=== PATIENT | male | born 1960 | race Caucasian/White ===

== ENCOUNTER 2017-05-11 11:48 | Inpatient (IN) | payer OTHER ==
--- NOTE | 2017-05-11 12:14 | Emergency Department Report ---
Chief Complaint: Chest Pain Stated Complaint: CHEST PRESSURE/SWOLLEN LEGS Time Seen by Provider: 05/11/17 12:09 - HPI History of Present Illness: PT c/o intermittent chest pain x a month. sob with exertion x 1 week - ROS Review of Systems: + cp + sob + ble edema - Exam Physical Exam: PT looks well, non toxic. ble edema noted MSE screening note: Focused history and physical exam performed. Due to findings the following was ordered: ekg, labs, xr ED Disposition for MSE Condition: Stable
[2017-05-11 12:32] LABS: Basophils % (Auto) 0.1 % (0.0-1.8); Eosinophils % (Auto) 2.7 % (0.0-4.3); Hematocrit 40.3 % (35.5-45.6); Hemoglobin 13.9 gm/dl (11.8-15.2); Mean Corpuscular HGB Conc 34 % (32-34); Mean Corpuscular Hemoglobin 31 pg (28-32); Mean Corpuscular Volume 89 fl (84-94); Platelet Count 227 K/mm3 (140-440); Red Blood Count 4.51 M/mm3 (3.65-5.03); Red Cell Distribution Width 13.4 % (13.2-15.2); White Blood Count 10.3 K/mm3 (4.5-11.0)
[2017-05-11 12:43] LABS: INR 1.02 (0.87-1.13)
[2017-05-11 12:44] LABS: Partial Thromboplastin Time 33.5 Sec. (24.2-36.6)
[2017-05-11] MEDS ORDERED: BABY ASPIRIN PO ONE (12:46)
[2017-05-11 12:51] LABS: Alanine Aminotransferase 28 units/L (7-56); Albumin 3.8 g/dL (3.9-5); Albumin/Globulin Ratio 0.9 %; Alkaline Phosphatase 85 units/L (35-129); Anion Gap 19 mmol/L; BUN/Creatinine Ratio 15.33; Blood Urea Nitrogen 23 mg/dL (9-20); Calcium 8.6 mg/dL (8.4-10.2); Carbon Dioxide 23 mmol/L (22-30); Chloride 104.2 mmol/L (98-107); Glucose 103 mg/dL (75-100); Potassium 4.5 mmol/L (3.6-5.0); Sodium 142 mmol/L (137-145); Total Protein 7.9 g/dL (6.3-8.2)
--- NOTE | 2017-05-11 12:55 | XRay Report ---
Bilateral mammogram: History: Chest pain. Findings: Borderline cardiomegaly. Trachea is midline. No consolidation, pneumothorax or pleural effusion. Impression: No acute cardiopulmonary findings.
--- NOTE | 2017-05-11 13:57 | Admit Criteria Form ---
Admission Criteria Documentation: CHEST PAIN Clinical Indications for Admission to Inpatient Care ([place]/check or initial the applicable condition/criteria) Admission is indicated for chest pain and ANY ONE of the following (1)(2)(3)(4)( 5)(6)(7): [ X]I. Angina with acute coronary syndrome (Also use Myocardial Infarction or Angina guideline) [ ]II. Hemodynamic instability [ ]III. Respiratory distress [ ]IV. Chest pain indicative of serious diagnosis other than coronary artery disease (e.g., aorticdissection) Extended stay beyond goal length of stay may be needed for(3)(4)(10)(45)(48) [ ]a) Unstable angina [ ]b) Continued suspicion of acute coronary syndrome with inability to complete needed cardiac evaluation (eg, patient clinically unable to undergo stress testing) [ ]c) Myocardial infarction [ ]d) Specific condition diagnosed after evaluation (eg, pulmonary embolism, aortic dissection)(49)(50)(51) The original [email or web address] content created by [email or web address] has been revised. The portions of the content which have been revised are identified through the use of italic text or in bold, and [email or web address] has neither reviewed nor approved the modified material. All other unmodified content is copyright [email or web address]. Please see references footnoted in the original [email or web address] edition 2017 Admission Criteria Met: Yes
--- NOTE | 2017-05-11 15:32 | Emergency Department Report ---
ED Chest Pain HPI - General Chief Complaint: Chest Pain Stated Complaint: CHEST PRESSURE/SWOLLEN LEGS Time Seen by Provider: 05/11/17 12:09 Source: patient Mode of arrival: Ambulatory Limitations: No Limitations - History of Present Illness Initial Comments: This is a 57-year-old male who presents to the emergency department complaint of bilateral lower extremity swelling and some chest pain that is intermittent. Both of these symptoms have been going on over the past few weeks but worsened over this past weekend. The chest pain is mostly a squeezing sensation with exertion. He denies any fever, nausea, vomiting or diaphoresis. He has a past medical history of arthritis, CHF, coronary artery disease with 8 stents, stage III chronic kidney disease. The patient's primary care physician is Dr. Bush and his photographic double is Dr. Lunsford and another one at the [facility]. He has not taken anything for his symptoms prior to presentation. No recent travel or sick contacts at home. Severity scale (0 -10): 3 - Related Data Home Medications Medication Instructions Recorded Confirmed Last Taken Allopurinol [Allopurinol] 30 mg PO DAILY 01/22/17 05/11/17 05/11/17 Amlodipine Besylate [Amlodipine 10 mg PO DAILY 01/22/17 05/11/17 05/11/17 Besylate] Aspirin [Aspirin EC] 81 mg PO DAILY 01/22/17 05/11/17 05/11/17 AtorvaSTATin [Lipitor] 80 mg PO DAILY 01/22/17 05/11/17 05/11/17 Citalopram Hydrobromide 30 mg PO DAILY 01/22/17 05/11/17 05/11/17 [Citalopram HBr] Clopidogrel Bisulfate [Plavix] 75 mg PO DAILY 01/22/17 05/11/17 05/11/17 ISOSORBIDE MONOnitrate [Imdur ER] 120 mg PO QDAY 01/22/17 05/11/17 05/11/17 Metoprolol Tartrate [Metoprolol 100 mg PO BID 01/22/17 05/11/17 05/11/17 Tartrate] Lisinopril [Zestril TAB] 40 mg PO QDAY 05/11/17 05/11/17 05/11/17 Simvastatin [Zocor TAB] 40 mg PO QHS 05/11/17 05/11/1717 Allergies Allergy/AdvReac Type Severity Reaction Status Date / Time tramadol Allergy Unknown Verified 05/11/17 12:44 Heart Score - HEART Score History: Moderately suspicious EKG: Non-specific Age: 45-65 Risk factors: > 3 risk factors or hx of atherosclerotic disease Troponin: < normal limit HEART Score: 5 - Critical Actions Critical Actions: 4-6 pts:12-16.6% risk of adverse cardiac event. Should be admitted ED Review of Systems ROS: Stated complaint: CHEST PRESSURE/SWOLLEN LEGS Other details as noted in HPI Comment: All other systems reviewed and negative Constitutional: denies: chills, fever Eyes: denies: eye pain, eye discharge, vision change ENT: denies: ear pain, throat pain Respiratory: denies: cough, wheezing Cardiovascular: chest pain, edema Gastrointestinal: denies: abdominal pain, nausea, diarrhea Genitourinary: denies: urgency, dysuria Musculoskeletal: denies: back pain, joint swelling, arthralgia Skin: denies: rash, lesions Neurological: denies: headache, weakness, paresthesias ED Past Medical Hx - Past Medical History Previous Medical History?: Yes Hx Hypertension: Yes Hx Congestive Heart Failure: Yes Hx Arthritis: Yes Additional medical history: aleep apnea - Surgical History Past Surgical History?: Yes Hx Coronary Stent: Yes Hx Open Heart Surgery: Yes - Social History Smoking Status: Never Smoker Substance Use Type: Prescribed - Medications Home Medications: Home Medications Medication Instructions Recorded Confirmed Last Taken Type Allopurinol [Allopurinol] 30 mg PO DAILY 01/22/17 05/11/17 05/11/17 History Amlodipine Besylate [Amlodipine 10 mg PO DAILY 01/22/17 05/11/17 05/11/17 History Besylate] Aspirin [Aspirin EC] 81 mg PO DAILY 01/22/17 05/11/17 05/11/17 History AtorvaSTATin [Lipitor] 80 mg PO DAILY 01/22/17 05/11/17 05/11/17 History Citalopram Hydrobromide 30 mg PO DAILY 01/22/17 05/11/17 05/11/17 History [Citalopram HBr] Clopidogrel Bisulfate [Plavix] 75 mg PO DAILY 01/22/17 05/11/17 05/11/17 History ISOSORBIDE MONOnitrate [Imdur ER] 120 mg PO QDAY 01/22/17 05/11/17 05/11/17 History Metoprolol Tartrate [Metoprolol 100 mg PO BID 01/22/17 05/11/17 05/11/17 History Tartrate] Lisinopril [Zestril TAB] 40 mg PO QDAY 05/11/17 05/11/17 05/11/17 History Simvastatin [Zocor TAB] 40 mg PO QHS 05/11/17 05/11/17 05/11/17 History ED Physical Exam - General Limitations: No Limitations - Other Other exam information: GENERAL: The patient is well-developed well-nourished. HENT: Normocephalic. Atraumatic. Patient has moist mucous membranes. EYES: Extraocular motions are intact. Pupils equal reactive to light bilaterally. NECK: Supple. Trachea is midline. CHEST/LUNGS: Slightly coarse breath sounds. No tachypnea or accessory muscle use. There is no respiratory distress noted. HEART/CARDIOVASCULAR: Regular. There is no tachycardia. There is no gallop rub or murmur. ABDOMEN: Abdomen is soft, nontender. Patient has normal bowel sounds. There is no abdominal distention. SKIN: There is 1+ pitting edema to the bilateral lower extremity. NEURO: The patient is awake, alert, and oriented. The patient is cooperative. The patient has no focal neurologic deficits. The patient has normal speech. MUSCULOSKELETAL: There is no tenderness or deformity. There is no limitation range of motion. There is no evidence of acute injury. ED Course Vital Signs 05/11/17 05/11/17 05/11/17 12:09 12:39 12:57 Temperature 98.7 F Pulse Rate 70 66 Respiratory 20 16 18 Rate Blood Pressure 116/82 Blood Pressure 109/67 [Left] O2 Sat by Pulse 97 96 Oximetry 05/11/17 05/11/17 13:27 15:19 Temperature Pulse Rate 65 60 Respiratory 18 18 Rate Blood Pressure Blood Pressure 107/68 112/71 [Left] O2 Sat by Pulse 97 96 Oximetry ED Medical Decision Making - Lab Data Result diagrams: 05/11/17 12:14 05/11/17 12:14 - EKG Data -: EKG Interpreted by [place] EKG shows normal: sinus rhythm, axis, intervals (prolonged GA interval indicating first-degree AV block), QRS complexes, ST-T waves (there is some T- wave inversion and mild ST depression to the lateral leads. No ST elevation) Rate: normal - EKG Data When compared to previous EKG there are: previous EKG unavailable - Radiology Data Radiology results: image reviewed interpreted by me: Chest x-ray does not show any acute process. There are no pleural effusions, obvious pneumonia and there is no pneumothorax. - Medical Decision Making 57-year-old male presents to the emergency department with some lower extremity swelling and exertional chest pain going on for the past few weeks but worsening since the past weekend. He has a significant history of 8 coronary stents. So far first 2 troponins have been negative. D-dimer was elevated so a VQ scan was done that did not show any signs of pulmonary embolism. He does not appear to be in any acute exacerbation of CHF as his BNP is only about 250 and chest x-ray does not show any pleural effusions. However with his worsening pains, his significant cardiac history, he'll be admitted to the hospital for further evaluation and treatment has been accepted for admission by the hospitalist, Dr. Garcias. - Differential Diagnosis GA, PE, CHF, Pneumonia Critical Care Time: No Critical care attestation.: If time is entered above; I have spent that time in minutes in the direct care of this critically ill patient, excluding procedure time. ED Disposition Clinical Impression: Exertional chest pain, Lower extremity edema, History of coronary artery disease Disposition: OP ADMIT IP TO THIS HOSP Is pt being admited?: Yes Condition: Stable Instructions: Chest Pain (ED) Referrals: SEBAS BUSH MD [Primary Care Provider] - 3-5 Days Time of Disposition: 16:03
--- NOTE | 2017-05-11 15:33 | Nuclear Medicine Report ---
Nuclear medicine ventilation/perfusion lung scan. History: Chest pain, elevated d-dimer. Findings: The ventilation study demonstrates a normal inhalation phase. On the equilibrium and washout phase, there is a persistent linear area of activity projected over the medial aspect of the left upper lung zone. There is no corresponding perfusion defect. The perfusion study demonstrates homogeneous activity throughout both lungs. Impression: Low probability of embolic disease. The above described ventilation abnormality may be artifactual.
[2017-05-11] MEDS ORDERED: LASIX IV ONE (15:38)
--- NOTE | 2017-05-11 18:13 | History and Physical Report ---
History of Present Illness Date of examination: 05/11/17 Date of admission: 05/11/17 15:56 Chief complaint: Chief complaint: [1] Swelling of both lower extremities. 3 Days. 2] Chest pain on exertion on day. History of present illness: History of present illness: 57-year-old -[place] male with extensive history of coronary artery disease coronary artery bypass graft 4 in 2012 hypertension gout dyslipidemia coronary artery disease presents to the ER for swelling of both the legs of 3-5 days' duration. Swelling is more in the right lower extremity. Patient had vein extraction from the right lower extremity for his coronary artery bypass graft in 2012. There is some pain in both the legs. Also chest pain on exertion for last 2-3 days. Also shortness of breath on exertion for last 2-3 days. Some orthopnea present. No paroxysmal nocturnal dyspnea. No diaphoresis. No palpitations. No fever no chills. No recent travel. No exacerbating or relieving factors. Only exacerbating factor is exertion. Past medical history: hypertension, coronary artery disease, gout, depression, dyslipidemia. Past surgical history: coronary artery bypass graft in . Also coronary stents 8. Family history: Hypertension. Social history: Never smoked. Used to drink alcohol in the past but not in the recent 4-5 years. His works in the emergency room here. Medications and Allergies Allergies Allergy/AdvReac Type Severity Reaction Status Date / Time tramadol Allergy Unknown Verified 05/11/17 12:44 Home Medications Medication Instructions Recorded Confirmed Last Taken Type Allopurinol [Allopurinol] 30 mg PO DAILY 01/22/17 05/11/17 05/11/17 History Amlodipine Besylate [Amlodipine 10 mg PO DAILY 01/22/17 05/11/17 05/11/17 History Besylate] Aspirin [Aspirin EC] 81 mg PO DAILY 01/22/17 05/11/17 05/11/17 History AtorvaSTATin [Lipitor] 80 mg PO DAILY 01/22/17 05/11/17 05/11/17 History Citalopram Hydrobromide 30 mg PO DAILY 01/22/17 05/11/17 05/11/17 History [Citalopram HBr] Clopidogrel Bisulfate [Plavix] 75 mg PO DAILY 01/22/17 05/11/17 05/11/17 History ISOSORBIDE MONOnitrate [Imdur ER] 120 mg PO QDAY 01/22/17 05/11/17 05/11/17 History Metoprolol Tartrate [Metoprolol 100 mg PO BID 01/22/17 05/11/17 05/11/17 History Tartrate] Lisinopril [Zestril TAB] 40 mg PO QDAY 05/11/17 05/11/17 05/11/17 History Simvastatin [Zocor TAB] 40 mg PO QHS 05/11/17 05/11/17 05/11/17 History Active Meds: Active Medications Heparin Sodium (Porcine) (Heparin) 5,000 unit SUB-Q Q8HR PARRIS Review of Systems All systems: negative Constitutional: weight gain (3 pound weight gain ) Ears, nose, mouth and throat: no hoarseness, no sore throat, no swelling in mouth, no swelling in throat Cardiovascular: chest pain, orthopnea, shortness of breath, dyspnea on exertion Respiratory: dyspnea on exertion, no cough, no cough with sputum, no excessive sputum, no hemoptysis, no shortness of breath Gastrointestinal: no abdominal pain, no nausea, no vomiting, no diarrhea, no constipation, no change in bowel habits, no hematemesis, no coffee ground emesis Genitourinary Male: no dysuria, no hematuria, no flank pain, no discharge, no urinary frequency, no urinary hesitancy, no nocturia, no incontinence, no erectile dysfunction, no genital pain Rectal: no pain Musculoskeletal: no neck stiffness, no neck pain, no shooting arm pain, no arm numbness/tingling, no low back pain, no shooting leg pain, no leg numbness/ tingling, no redness of joints Integumentary: no rash, no pruritis, no redness, no sores, no wounds, no jaundice, no boils, no blisters Neurological: no seizures, no syncope Psychiatric: no anxiety, no memory loss, no change in sleep habits, no sleep disturbances, no insomnia, no hypersomnia, no change in appetite, no change in libido, no suicidal ideation, no disorientation, no hallucinations Endocrine: no cold intolerance, no heat intolerance, no polyphagia, no excessive thirst, no polydipsia, no polyuria, no nocturia, no excessive sweating , no flushing, no weight change Hematologic/Lymphatic: no easy bruising, no easy bleeding Allergic/Immunologic: no urticaria, no allergic rhinitis, no wheezing Exam - Physical Exam Narrative exam: Lying comfortably and in no distress. - Constitutional Vitals: Temp Pulse Resp BP Pulse Ox 98.7 F 60 18 112/71 96 05/11/17 12:09 05/11/17 15:19 05/11/17 15:19 05/11/17 15:19 05/11/17 15:19 General appearance: Present: no acute distress, well-nourished - EENT Eyes: Present: PERRL ENT: hearing intact, clear oral mucosa - Neck Neck: Present: supple, normal ROM - Respiratory Respiratory effort: normal Respiratory: bilateral: CTA - Cardiovascular Heart rate: 80 Rhythm: regular Heart Sounds: Present: S1 & S2. Absent: rub, click - Extremities Extremities: no ischemia, pulses intact, pulses symmetrical, No edema, normal color, abnormal (swelling of both lower extremities from the knee down to the ankle. More swelling in right lower extremity. Pulses well felt especially dorsalis pedis) Extremity abnormal: edema (3+ pedal edema) Peripheral Pulses: within normal limits - Abdominal General gastrointestinal: Present: soft, non-tender, non-distended, normal bowel sounds Male genitourinary: Present: normal - Rectal Rectal Exam: deferred - Integumentary Integumentary: Present: clear, warm, dry - Musculoskeletal Musculoskeletal: gait normal, strength equal bilaterally - Psychiatric Psychiatric: appropriate mood/affect, intact judgment & insight - Neurologic Neurologic: CNII-XII intact, moves all extremities - Allied Health Allied health notes reviewed: nursing, case management Results - Labs CBC & Chem 7: 05/11/17 12:14 05/11/17 12:14 Labs: Laboratory Last Values WBC 10.3 K/mm3 (4.5-11.0) 05/11/17 12:14 RBC 4.51 M/mm3 (3.65-5.03) 05/11/17 12:14 Hgb 13.9 gm/dl (11.8-15.2) 05/11/17 12:14 Hct 40.3 % (35.5-45.6) 05/11/17 12:14 MCV 89 fl (84-94) 05/11/17 12:14 MCH 31 pg (28-32) 05/11/17 12:14 MCHC 34 % (32-34) 05/11/17 12:14 RDW 13.4 % (13.2-15.2) 05/11/17 12:14 Plt Count 227 K/mm3 (140-440) 05/11/17 12:14 Lymph % (Auto) 27.4 % (13.4-35.0) 05/11/17 12:14 [place] % (Auto) 8.2 % (0.0-7.3) H 05/11/17 12:14 Eos % (Auto) 2.7 % (0.0-4.3) 05/11/17 12:14 Baso % (Auto) 0.1 % (0.0-1.8) 05/11/17 12:14 Lymph # 2.8 K/mm3 (1.2-5.4) 05/11/17 12:14 [place] # 0.8 K/mm3 (0.0-0.8) 05/11/17 12:14 Eos # 0.3 K/mm3 (0.0-0.4) 05/11/17 12:14 Baso # 0.0 K/mm3 (0.0-0.1) 05/11/17 12:14 Seg Neutrophils % 61.6 % (40.0-70.0) 05/11/17 12:14 Seg Neutrophils # 6.3 K/mm3 (1.8-7.7) 05/11/17 12:14 PT 13.9 Sec. (12.2-14.9) 05/11/17 12:14 INR 1.02 (0.87-1.13) 05/11/17 12:14 APTT 33.5 Sec. (24.2-36.6) 05/11/17 12:14 D-Dimer 274.85 ng/mlDDU (0-234) H 05/11/17 12:14 Sodium 142 mmol/L (137-145) 05/11/17 12:14 Potassium 4.5 mmol/L (3.6-5.0) 05/11/17 12:14 Chloride 104.2 mmol/L (98-107) 05/11/17 12:14 Carbon Dioxide 23 mmol/L (22-30) 05/11/17 12:14 Anion Gap 19 mmol/L 05/11/17 12:14 BUN 23 mg/dL (9-20) H 05/11/17 12:14 Creatinine 1.5 mg/dL (0.8-1.5) 05/11/17 12:14 Estimated GFR 49 ml/min 05/11/17 12:14 BUN/Creatinine Ratio 15.33 % 05/11/17 12:14 Glucose 103 mg/dL (75-100) H 05/11/17 12:14 Calcium 8.6 mg/dL (8.4-10.2) 05/11/17 12:14 Total Bilirubin 0.40 mg/dL (0.1-1.2) 05/11/17 12:14 AST 16 units/L (5-40) 05/11/17 12:14 ALT 28 units/L (7-56) 05/11/17 12:14 Alkaline Phosphatase 85 units/L (35-129) 05/11/17 12:14 Troponin T < 0.010 ng/mL (0.00-0.029) 05/11/17 12:14 Total Protein 7.9 g/dL (6.3-8.2) 05/11/17 12:14 Albumin 3.8 g/dL (3.9-5) L 05/11/17 12:14 Albumin/Globulin Ratio 0.9 % 05/11/17 12:14 Short CBC 05/11/17 Range/Units 12:14 WBC 10.3 (4.5-11.0) K/mm3 Hgb 13.9 (11.8-15.2) gm/dl Hct 40.3 (35.5-45.6) % Plt Count 227 (140-440) K/mm3 BMP 05/11/17 12:14 Sodium 142 Potassium 4.5 Chloride 104.2 Carbon Dioxide 23 BUN 23 H Creatinine 1.5 Glucose 103 H Calcium 8.6 Cardiac Enzymes 05/11/17 Range/Units 12:14 Troponin T < 0.010 (0.00-0.029) ng/mL Liver Function 05/11/17 Range/Units 12:14 Total Bilirubin 0.40 (0.1-1.2) mg/dL AST 16 (5-40) units/L ALT 28 (7-56) units/L Alkaline Phosphatase 85 (35-129) units/L Albumin 3.8 L (3.9-5) g/dL - Imaging and Cardiology EKG: report reviewed (heart rate of 64 per minute. Sinus rhythm with first degree AV block. ST-T wave abnormalities in lateral leads consider lateral ischemia. Abnormal EKG. T-wave inversion in V4 V5 and V6.) Chest x-ray: report reviewed (no acute cardiopulmonary findings) Assessment and Plan Advance Directives: Yes (full code) VTE prophylaxis?: Chemical Plan of care discussed with patient/family: Yes - Patient Problems (1) Acute coronary syndrome Current Visit: Yes Status: Acute Plan to address problem: Patient had multiple stress tests and as recently as in November had a cardiac stent following the stress test in [facility]. We will defer to cardiology regarding stress test. Will get serial cardiac enzymes in the meantime. (2) Hypertension Current Visit: Yes Status: Chronic Qualifiers: Hypertension type: essential hypertension Qualified Code(s): I10 - Essential (primary) hypertension Plan to address problem: Continue amlodipine 10 mg once a day and metoprolol 100 mg twice a day. (3) Coronary artery disease Current Visit: Yes Status: Chronic Qualifiers: Coronary Disease-Associated Artery/Lesion type: [place] artery [place] vs. transplanted heart: N Associated angina: with unspecified angina Plan to address problem: Continue Imdur and Plavix 75 mg once daily in addition to aspirin 81 mg once daily. (4) Gout Current Visit: Yes Status: Inactive Qualifiers: Gout site: G Gout etiology: G Encounter type: E Chronicity: C Laterality: L Presence of tophus: without tophus Plan to address problem: Continue allopurinol 100 mg once daily for prevention (5) Dyslipidemia Current Visit: Yes Status: Chronic Plan to address problem: Continue atorvastatin 80 mg once a day. (6) Localized swelling of both lower legs Current Visit: Yes Status: Acute Plan to address problem: Probably sec to venous insufficiency. Venous ultrasound ordered for r/o DVT (7) DVT prophylaxis Current Visit: Yes Status: Acute Plan to address problem: Lovenox 40 mg subcutaneous initiated.
[2017-05-11] MEDS ORDERED: MILK OF MAGNESIA PO PRN (18:35)
[2017-05-11] MEDS ORDERED: ZOFRAN IV PRN (18:35)
[2017-05-11] MEDS ORDERED: PERCOCET 5/325 PO PRN (18:35)
[2017-05-11] MEDS ORDERED: DILAUDID IV PRN (18:35)
[2017-05-11] MEDS ORDERED: TYLENOL PO PRN (18:35)
[2017-05-11] MEDS ORDERED: DULCOLAX PR PRN (18:35)
[2017-05-11] MEDS ORDERED: ZYLOPRIM PO SCH (19:00)
[2017-05-11] MEDS ORDERED: NORVASC PO SCH (19:00)
[2017-05-11] MEDS ORDERED: LASIX ONE (19:38)
[2017-05-11 20:27] LABS: Creatine Kinase MB 2.5 ng/mL (0.0-4.0)
[2017-05-11 20:28] LABS: Creatine Kinase 133 units/L (55-170)
[2017-05-11] MEDS: HALFPRIN EC PO SCH (21:35)
[2017-05-11] MEDS: ZESTRIL PO SCH (21:35)
[2017-05-11] MEDS: PLAVIX PO SCH (21:35)
[2017-05-11] MEDS: LOPRESSOR PO SCH (21:36)
[2017-05-11] MEDS: PEPCID PO SCH (21:36)
[2017-05-11] MEDS: HEPARIN SUB-Q SCH (21:37)
[2017-05-11] MEDS: IMDUR PO SCH (21:37)
[2017-05-11] MEDS ORDERED: ZOCOR PO SCH (22:00)
[2017-05-12 02:32] LABS: Creatine Kinase MB 2.2 ng/mL (0.0-4.0)
[2017-05-12 02:33] LABS: Creatine Kinase 143 units/L (55-170)
[2017-05-12] MEDS: HEPARIN SUB-Q SCH ×3 (05:27→21:47)
[2017-05-12 07:15] LABS: Albumin 3.6 g/dL (3.9-5); BUN/Creatinine Ratio 14.11; Bilirubin,Total 0.4 mg/dL (0.1-1.2); Calcium 8.1 mg/dL (8.4-10.2); Chloride 101.1 mmol/L (98-107); Potassium 4.3 mmol/L (3.6-5.0); Total Protein 7.3 g/dL (6.3-8.2)
--- NOTE | 2017-05-12 10:51 | Consultation ---
History of Present Illness Consult date: 05/12/17 Requesting physician: TROY MARTINEZ Consult reason: chest pain History of present illness: The pt is a 57 YO male with a past medical history significant for CAD, s/p CABG x4 (11/2012) and multiple PCI (most recent 04/2016 VIJAY of the SVG-RCA), HTN, HLP, JANIS, CKD, obesity, PTSD and anxiety. He is followed in our office by Dr. Holloway. He presented with c/o RLE swelling and pain x 3 days SECRETARY and recurrent midsternal chest tightness with minimal exertion and/or anxiety x several weeks SECRETARY. He also reports ANN. He denies any palpitations, n/v, diaphoresis, dizziness or syncope. Admission ECG showed NAF; Estefany are negative for AMI x 3 sets; CXR with NAF; DDimer minimally elevated; V/Q scan with low probability for PE; BLE venous duplex studies pending. Of note, last LHC done 07/01/2016 showed EF 50%, severe triple-vessel disease protected by GARCIA to LAD graft, free radial graft to mid obtuse marginal branch , and patent saphenous vein graft sequentially to the PDA and LV branches and the distal part of this graft which was stented 04/2016 widely patent. Echo done 05/2016 showed trace MR, mild LVH, EF 50 - 55%. Past History Past Medical History: acute PR, CAD, hypertension, hyperlipidemia, other (JANIS; CKD) Past Surgical History: CABG Social history: , lives with family. denies: smoking, alcohol abuse, prescription drug abuse Medications and Allergies Allergies Allergy/AdvReac Type Severity Reaction Status Date / Time tramadol Allergy Unknown Verified 05/11/17 12:44 Home Medications Medication Instructions Recorded Confirmed Last Taken Type Allopurinol [Allopurinol] 30 mg PO DAILY 01/22/17 05/11/17 05/11/17 History Amlodipine Besylate [Amlodipine 10 mg PO DAILY 01/22/17 05/11/17 05/11/17 History Besylate] Aspirin [Aspirin EC] 81 mg PO DAILY 01/22/17 05/11/17 05/11/17 History AtorvaSTATin [Lipitor] 80 mg PO DAILY 01/22/17 05/11/17 05/11/17 History Citalopram Hydrobromide 30 mg PO DAILY 05/02/0305/11/17 05/11/17 History [Citalopram HBr] Clopidogrel Bisulfate [Plavix] 75 mg PO DAILY 01/22/17 05/11/17 05/11/17 History ISOSORBIDE MONOnitrate [Imdur ER] 120 mg PO QDAY 01/22/17 05/11/17 05/11/17 History Metoprolol Tartrate [Metoprolol 100 mg PO BID 01/22/17 05/11/17 05/11/17 History Tartrate] Lisinopril [Zestril TAB] 40 mg PO QDAY 05/11/17 05/11/17 05/11/17 History Simvastatin [Zocor TAB] 40 mg PO QHS 05/11/17 05/11/17 05/11/17 History Active Meds: Active Medications Acetaminophen (Tylenol) 650 mg PO Q4H PRN PRN Reason: Pain MILD(1-3)/Fever >100.5/MISHRA Allopurinol (Zyloprim) 100 mg PO DAILY [facility] Amlodipine Besylate (Norvasc) 10 mg PO DAILY [facility] Aspirin (Halfprin Ec) 81 mg PO DAILY [facility] Last Admin: 05/11/17 21:35 Dose: 81 mg Atorvastatin Calcium (Lipitor) 80 mg PO QHS [facility] Last Admin: 05/11/17 21:37 Dose: 80 mg Bisacodyl (Dulcolax) 10 mg [place] QDAY PRN PRN Reason: Constipation unrelieved by MOM Citalopram Hydrobromide (Celexa) 30 mg PO DAILY [facility] Clopidogrel Bisulfate (Plavix) 75 mg PO DAILY [facility] Last Admin: 05/11/17 21:35 Dose: 75 mg Famotidine (Pepcid) 20 mg PO BID [facility] Last Admin: 05/11/17 21:36 Dose: 20 mg Heparin Sodium (Porcine) (Heparin) 5,000 unit SUB-Q Q8HR [facility] Last Admin: 05/12/17 05:27 Dose: 5,000 unit Hydromorphone HCl (Dilaudid) 0.5 mg IV Q3H PRN PRN Reason: Pain , Severe (7-10) Isosorbide Mononitrate (Imdur) 120 mg PO QDAY [facility] Last Admin: 05/11/17 21:37 Dose: 120 mg Lisinopril (Zestril) 40 mg PO QDAY [facility] Last Admin: 05/11/17 21:35 Dose: 40 mg Magnesium Hydroxide (Milk Of Magnesia) 30 ml PO Q4H PRN PRN Reason: Constipation Metoprolol Tartrate (Lopressor) 100 mg PO BID [facility] Last Admin: 05/11/17 21:36 Dose: 100 mg Ondansetron HCl (Zofran) 4 mg IV Q8H PRN PRN Reason: N/V unrelieved by Reglan Oxycodone/Acetaminophen (Percocet 5/325) 1 tab PO Q6H PRN PRN Reason: Pain, Moderate (4-6) Review of Systems Constitutional: no weight loss, no weight gain, no fever, no chills, no sweats Ears, nose, mouth and throat: no ear pain, no nose pain, no sinus pressure, no sinus pain Cardiovascular: chest pain, dyspnea on exertion, leg edema (RLE), decreased exercise tolerance, no orthopnea, no palpitations, no rapid/irregular heart beat , no edema, no syncope, no lightheadedness, no shortness of breath, no paroxysmal nocturnal dyspnea Respiratory: dyspnea on exertion, no cough, no shortness of breath, no congestion, no wheezing, no pain on inspiration Gastrointestinal: no abdominal pain, no nausea, no vomiting, no diarrhea, no constipation, no change in bowel habits Genitourinary Male: no dysuria, no hematuria, no flank pain, no discharge, no urinary frequency, no urinary hesitancy Musculoskeletal: no neck stiffness, no neck pain, no shooting arm pain, no arm numbness/tingling, no low back pain, no shooting leg pain, no leg numbness/ tingling, no redness of joints Integumentary: no rash, no pruritis, no redness, no sores, no wounds Neurological: no head injury, no paralysis, no weakness, no parathesias, no numbness, no tingling, no seizures, no syncope Psychiatric: anxiety Endocrine: no cold intolerance, no heat intolerance Hematologic/Lymphatic: no easy bruising, no easy bleeding, no lymphadenopathy Allergic/Immunologic: no urticaria, no wheezing, no persistent infections Physical Examination Vital Signs Temp Pulse Resp BP Pulse Ox 98.7 F 70 20 116/82 97 05/11/17 12:09 05/11/17 12:09 05/11/17 12:09 05/11/17 12:09 05/11/17 12:09 General appearance: no acute distress HEENT: Positive: PERRL, Normocephaly, Mucus Membranes Moist Neck: Positive: neck supple, trachea midline Cardiac: Positive: Reg Rate and Rhythm, S1/S2 Lungs: Positive: Normal Exam, clear to auscultation, Normal Breath Sounds Neuro: Positive: Grossly Intact, Cranial Nerve 2-12 Intact Abdomen: Positive: Unremarkable, Soft, Active Bowel Sounds. Negative: Tender Skin: Positive: Clear. Negative: Rash, Wound Musculoskeletal: No Fluid Collection, No Pain, Normal Range of Motion Extremities: Absent: edema Results 05/11/17 12:14 05/12/17 05:48 Cardiac Enzymes 05/11/17 05/12/17 05/12/17 Range/Units 19:10 01:02 05:48 AST 16 (5-40) units/L CK-MB (CK-2) 2.5 2.2 (0.0-4.0) ng/mL Comprehensive Metabolic Panel 05/12/17 Range/Units 05:48 Sodium 139 (137-145) mmol/L Potassium 4.3 (3.6-5.0) mmol/L Chloride 101.1 (98-107) mmol/L Carbon Dioxide 25 (22-30) mmol/L BUN 24 H (9-20) mg/dL Creatinine 1.7 H (0.8-1.5) mg/dL Glucose 86 (75-100) mg/dL Calcium 8.1 L (8.4-10.2) mg/dL AST 16 (5-40) units/L ALT 26 (7-56) units/L Alkaline Phosphatase 77 (35-129) units/L Total Protein 7.3 (6.3-8.2) g/dL Albumin 3.6 L (3.9-5) g/dL - Imaging and Cardiology Echo: report reviewed (05/2016: trace MR, mild LVH, EF 50 - 55%. ) Cardiac cath: report reviewed (07/01/2016: EF 50%, severe triple-vessel disease protected by GARCIA to LAD graft, free radial graft to mid obtuse marginal branch , and patent saphenous vein graft sequentially to the PDA and LV branches and the distal part of this graft which was stented 04/2016 widely patent) EKG: image reviewed EKG interpretations - Telemetry EKG Rhythm: 1st Degree HB AV and intraventricular conduction: 1 AV block Chamber hypertrophy or enlargement: left ventricular hypertro Myocardial infarction: inferior PR (old age inde Assessment and Plan Assessment: Chest pain - with somewhat typical features; recurrent; ECG with NAF; Estefany negative for AMI x 3 sets. CAD, s/p CABG and PCI - last LHC in 06/2016 showed patent grafts and stent. HTN HLP JANIS Obesity H/o PTSD / anxiety Plan: Plan for lexiscan MPI stress test in AM. NPO after MN. No indication for repeat echo at time given recent echo 05/2016. Cont home ASA 81, plavix, lopressor, imdur, lisinopril, norvasc. Pt on pravastatin at home and did not tolerate Lipitor in the past d/t muscle aches. Hold statin at this time and will resume home statin at discharge. Assessment and plan reviewed with pt at bedside. The patient has been seen in conjunction with Dr. Bose who agrees with the assessment and plan of care.
[2017-05-12] MEDS: PEPCID PO SCH ×2 (10:57→21:46)
[2017-05-12] MEDS: HALFPRIN EC PO SCH (10:57)
[2017-05-12] MEDS: NORVASC PO SCH (10:57)
[2017-05-12] MEDS: ZESTRIL PO SCH (10:58)
[2017-05-12] MEDS: celeXA PO SCH (10:58)
[2017-05-12] MEDS: IMDUR PO SCH (10:58)
[2017-05-12] MEDS: ZYLOPRIM PO SCH (10:59)
[2017-05-12] MEDS: LOPRESSOR PO SCH ×2 (10:59→21:46)
[2017-05-12] MEDS: PLAVIX PO SCH (11:02)
--- NOTE | 2017-05-12 11:55 | Consultation ---
History of Present Illness - Reason for Consult Consult date: 05/12/17 chronic renal failure, proteinuria - History of Present Illness The patient is a 57 YO AAM with medical history significant for Morbid Obesity, Hypertension, HLP, CAD, s/p CABG x4 (11/2012), multiple PCI (most recent 04/2016 VIJAY of the SVG-RCA), JANIS, CKD stage 3, Proteinuria, PTSD and anxiety who presented with 3 days h/o RLE swelling and pain and several days h/o chest tightness. CP is midsternal, intermittent and not radiating. He also reports ANN. He denies any palpitations, N, V, D, abd pain, diaphoresis, dizziness, dysuria, hematuria or syncope. Patient is known to have CKD stage 3 with baseline creatinine around 1.8 and was last seen by PA [facility]over about 2 years ago. He has gained atleast 50 lbs of weight over the past 2 years. Past History Past Medical History: acute AR, CAD, hypertension, hyperlipidemia, other (JANIS; CKD) Past Surgical History: CABG Social history: , lives with family. denies: smoking, alcohol abuse, prescription drug abuse Medications and Allergies Allergies Allergy/AdvReac Type Severity Reaction Status Date / Time tramadol Allergy Unknown Verified 05/11/17 12:44 Home Medications Medication Instructions Recorded Confirmed Last Taken Type Allopurinol [Allopurinol] 30 mg PO DAILY 01/22/17 05/11/17 05/11/17 History Amlodipine Besylate [Amlodipine 10 mg PO DAILY 01/22/17 05/11/17 05/11/17 History Besylate] Aspirin [Aspirin EC] 81 mg PO DAILY 01/22/17 05/11/17 05/11/17 History AtorvaSTATin [Lipitor] 80 mg PO DAILY 01/22/17 05/11/17 05/11/17 History Citalopram Hydrobromide 30 mg PO DAILY 01/22/17 05/11/17 05/11/17 History [Citalopram HBr] Clopidogrel Bisulfate [Plavix] 75 mg PO DAILY 01/22/17 05/11/17 05/11/17 History ISOSORBIDE MONOnitrate [Imdur ER] 120 mg PO QDAY 01/22/17 05/11/17 05/11/17 History Metoprolol Tartrate [Metoprolol 100 mg PO BID 01/22/17 05/11/17 05/11/17 History Tartrate] Lisinopril [Zestril TAB] 40 mg PO QDAY 05/11/17 05/11/17 05/11/17 History Simvastatin [Zocor TAB] 40 mg PO QHS 05/11/17 05/11/17 05/11/17 History Active Meds: Active Medications Acetaminophen (Tylenol) 650 mg PO Q4H PRN PRN Reason: Pain MILD(1-3)/Fever >100.5/MISHRA Allopurinol (Zyloprim) 100 mg PO DAILY [facility] Last Admin: 05/12/17 10:59 Dose: 100 mg Amlodipine Besylate (Norvasc) 10 mg PO DAILY [facility] Last Admin: 05/12/17 10:57 Dose: 10 mg Aspirin (Halfprin Ec) 81 mg PO DAILY [facility] Last Admin: 05/12/17 10:57 Dose: 81 mg Bisacodyl (Dulcolax) 10 mg [place] QDAY PRN PRN Reason: Constipation unrelieved by MOM Citalopram Hydrobromide (Celexa) 30 mg PO DAILY [facility] Last Admin: 05/12/17 10:58 Dose: 30 mg Clopidogrel Bisulfate (Plavix) 75 mg PO DAILY [facility] Last Admin: 05/12/17 11:02 Dose: 75 mg Famotidine (Pepcid) 20 mg PO BID [facility] Last Admin: 05/12/17 10:57 Dose: 20 mg Heparin Sodium (Porcine) (Heparin) 5,000 unit SUB-Q Q8HR [facility] Last Admin: 05/12/17 05:27 Dose: 5,000 unit Hydromorphone HCl (Dilaudid) 0.5 mg IV Q3H PRN PRN Reason: Pain , Severe (7-10) Isosorbide Mononitrate (Imdur) 120 mg PO QDAY [facility] Last Admin: 05/12/17 10:58 Dose: 120 mg Lisinopril (Zestril) 40 mg PO QDAY [facility] Last Admin: 05/12/17 10:58 Dose: 40 mg Magnesium Hydroxide (Milk Of Magnesia) 30 ml PO Q4H PRN PRN Reason: Constipation Metoprolol Tartrate (Lopressor) 100 mg PO BID [facility] Last Admin: 05/12/17 10:59 Dose: 100 mg Ondansetron HCl (Zofran) 4 mg IV Q8H PRN PRN Reason: N/V unrelieved by Reglan Oxycodone/Acetaminophen (Percocet 5/325) 1 tab PO Q6H PRN PRN Reason: Pain, Moderate (4-6) Review of Systems Constitutional: weight gain, no weight loss, no fever, no chills, no anorexia, no weakness, no poor appetite Ears, nose, mouth and throat: no sinus pain, no epistaxis Cardiovascular: orthopnea, edema, shortness of breath, dyspnea on exertion, high blood pressure, leg edema, decreased exercise tolerance, no chest pain, no palpitations, no rapid/irregular heart beat, no syncope, no lightheadedness Respiratory: shortness of breath, dyspnea on exertion, sleep apnea, no cough, no cough with sputum, no hemoptysis, no home oxygen Gastrointestinal: no abdominal pain, no nausea, no vomiting, no diarrhea, no hematemesis, no melena Genitourinary Male: no dysuria, no hematuria Rectal: no bleeding Musculoskeletal: no redness of joints Integumentary: no rash, no sores, no jaundice Neurological: no syncope, no change in mentation, no confusion, no gait dysfunction Psychiatric: no disorientation Endocrine: weight change Hematologic/Lymphatic: no easy bleeding Exam - Vital Signs Vital signs: Vital Signs Temp Pulse Resp BP Pulse Ox 98.7 F 70 20 116/82 97 05/11/17 12:09 05/11/17 12:09 05/11/17 12:09 05/11/17 12:09 05/11/17 12:09 - General Appearance General appearance: well-developed, well-nourished, appears stated age, obese, other (no distress) EENT: ATNC, PERRL, mucous membranes moist, hearing intact, vision intact Neck: Present: neck supple, trachea midline Respiratory: Clear to Ascultation Heart: regular, S1S2, no murmurs Gastrointestinal: Present: normoactive bowel sounds, obese. Absent: tenderness , distended Integumentary: no rash Neurologic: no focal deficit, no asterixis, alert and oriented x3, CN 3-12 intact Musculoskeletal: Present: other (no edema) Psychiatric: mood/affect appropriate, cooperative Results - Lab Results 05/11/17 12:14 05/12/17 05:48 Most recent lab results Calcium 8.1 mg/dL (8.4-10.2) L 05/12/17 05:48 - Image Kidney/bladder ultrasound: pending Assessment and Plan - Patient Problems (1) Renal insufficiency Current Visit: Yes Status: Chronic Plan to address problem: CKD stage 3 likely secondary to hypertensive nephropathy. Renal function appears to be at his baseline. Discussed in detail about healthy eating habits, exercise and weight loss. (2) Proteinuria Current Visit: Yes Status: Chronic Qualifiers: Proteinuria type: P Isolated proteinuria type: I Trimester: T Plan to address problem: Patient is on Lisinopril. Likely secondary to Hypertensive Nephropathy. Urine studies ordered. (3) Exertional chest pain Current Visit: Yes Status: Acute Plan to address problem: Followed by Window C[facility].
--- NOTE | 2017-05-12 14:12 | Ultrasound Report ---
ULTRASOUND RENAL BILATERAL HISTORY: Acute renal failure. TECHNIQUE: transabdominal ultrasound with color Doppler interrogation. FINDINGS: The right kidney measures 10.6 x 4.3 x 5.5cm. Right renal cortex: 1.3cm. The left kidney measures 11.3 x 5.0 x 5.3cm. Left renal cortex: 1.2cm. Scans of the kidneys show normal renal contours. There is normal central calyceal clustering and good preservation of the cortical thickness. There is no evidence of mass or hydronephrosis. The views of the bladder and the region of the ureters appear normal. IMPRESSION: Unremarkable renal ultrasound. No significant change since 11/25/12.
--- NOTE | 2017-05-12 14:55 | Progress Note ---
Assessment and Plan Chest pain -with somewhat typical features; recurrent; ECG with NAF; Estefany negative for AMI x 3 sets. - stress test tomorrow, cardiology following CAD with history of KS - s/p CABG and PCI - last [facility] in 06/2016 showed patent grafts and stent. - Echo done 05/2016 showed trace MR, mild LVH, EF 50 - 55% - cont home meds, asp, plavix, BB, ACEI, imdur - no statin as he had side effect before CKD stage 3 - cr 1.7 today, Renal US unremarkable HTN - cont home meds ( BB, ACEI, imdur) HLD, - had side effect from lipitor, cont to hold JANIS - Supplimental O2, CPAp at bed time Obesity, counseled for wt reduction H/o PTSD / anxiety - no acute issue - cont celexa Brief history: The pt is a 57 YO male with a past medical history significant for CAD, s/p CABG x4 (11/2012) and multiple PCI (most recent 04/2016 VIJAY of the SVG-RCA), HTN, HLP, JANIS, CKD, obesity , PTSD and anxiety followed by Dr. Holloway presented with c/o RLE swelling and pain x 3 days [facility] and recurrent midsternal chest tightness with minimal exertion and/or anxiety x several weeks [facility]. Admission ECG showed NAF; Estefany are negative for AMI x 3 sets; DDimer minimally elevated; BLE venous duplex studies pending. Chest x-ray, no acute infiltrate Pulmonary VQ scan, low probability for PE Renal ultrasound, unremarkable Subjective Date of service: 05/12/17 Interval history: Patient seen and examined. Medical records and medication list reviewed. No acute event overnight noted by the RN. Patient cont to chest pain, denies difficulty breathing. Patient is tolerating diet. Discussed plan of care at bedside with patient. Objective - Exam Narrative Exam: GENERAL: well-developed and well-nourished AAM lying on bed appeared to be in no discomfort. HEENT: Normocephalic. Atraumatic. No conjunctival congestion or icterus. Patient has moist mucous membranes. NECK: Supple. Trachea midline. CHEST/LUNGS: Clear to auscultated bilaterally, breathing nonlabored. No wheezes crackles or rhonchi. HEART/CARDIOVASCULAR: Regular in rate and rhythm. S1 and S2 positive. ABDOMEN: Abdomen is soft, nontender. Patient has normal bowel sounds. SKIN: There is no rash. Warm and dry. NEURO: No focal motor deficit. Follows command. MUSCULOSKELETAL: No joint effusion or tenderness. EXTRIMITY: No edema, no cyanosis or clubbing. PSYCH: Cooperative. - Constitutional Vitals: Vital Signs - 12hr 05/12/17 05/12/17 05/12/17 05:44 08:00 08:34 Temperature 98.8 F 97.4 F L Pulse Rate 56 L 71 Respiratory 18 18 Rate Blood Pressure 101/56 119/75 O2 Sat by Pulse 98 99 98 Oximetry 05/12/17 05/12/17 05/12/17 10:57 10:58 10:59 Temperature Pulse Rate 78 78 78 Respiratory Rate Blood Pressure 119/75 119/75 119/75 O2 Sat by Pulse Oximetry 05/12/17 05/12/17 11:45 12:00 Temperature 98.4 F Pulse Rate 56 L 72 Respiratory 18 Rate Blood Pressure 126/79 O2 Sat by Pulse 97 Oximetry - Labs CBC & Chem 7: 05/11/17 12:14 05/13/17 06:36 Labs: Abnormal lab results 05/12/17 Range/Units 05:48 BUN 24 H (9-20) mg/dL Creatinine 1.7 H (0.8-1.5) mg/dL Calcium 8.1 L (8.4-10.2) mg/dL Albumin 3.6 L (3.9-5) g/dL
[2017-05-12 19:23] LABS: Bilirubin,Urine NEG (Negative); Blood,Urine NEG (Negative); Ketones,Urine NEG (Negative); Leukocyte Esterase,Urine NEG (Negative); Mucus,Urine FEW /HPF; Nitrite,Urine NEG (Negative); RBC,Urine < 1.0 /HPF (0.0-6.0); Urobilinogen,Urine < 2.0 mg/dL (<2.0)
[2017-05-13] MEDS: HEPARIN SUB-Q SCH ×2 (05:29→14:02)
[2017-05-13 07:21] LABS: BUN/Creatinine Ratio 14.11; Calcium 8.1 mg/dL (8.4-10.2); Chloride 105.4 mmol/L (98-107); Potassium 4.3 mmol/L (3.6-5.0)
[2017-05-13] MEDS ORDERED: LEXISCAN IV ONE ×2 (09:08→09:09)
--- NOTE | 2017-05-13 09:57 | Progress Note ---
Assessment and Plan Assessment: Chest pain - currently resolved; with somewhat typical features; ECG with NAF; Estefany negative for AMI x 3 sets. CAD, s/p CABG and PCI - last C in 06/2016 showed patent grafts and stent. HTN HLP JANIS Obesity H/o PTSD / anxiety Plan: Proceed with lexiscan MPI stress test today. Await findings. No indication for repeat echo at time given recent echo 05/2016. Cont home ASA 81, plavix, lopressor, imdur, lisinopril, norvasc. Pt on pravastatin at home and did not tolerate Lipitor in the past d/t muscle aches. Hold statin at this time and will resume home statin at discharge. Assessment and plan reviewed with pt at bedside. The patient has been seen in conjunction with Dr. Bose who agrees with the assessment and plan of care. Subjective Date of service: 05/13/17 Principal diagnosis: chest pain Interval history: pt seen in stress lab, NAD. No chest pain overnight. VSS. Objective Last Vital Signs Temp 99.0 F 05/13/17 08:15 Pulse 79 05/13/17 09:44 Resp 18 05/13/17 08:15 BP 118/73 05/13/17 09:44 Pulse Ox 98 05/13/17 08:15 - Physical Examination General: Appears Well, No Apparent Distress HEENT: Positive: PERRL, Normocephaly, Mucus Membranes Moist Neck: Positive: neck supple, trachea midline Cardiac: Positive: Reg Rate and Rhythm, S1/S2 Lungs: Positive: clear to auscultation Neuro: Positive: Grossly Intact, Cranial Nerve 2-12 Intact Abdomen: Positive: Unremarkable, Soft, Active Bowel Sounds. Negative: Tender Skin: Positive: Clear. Negative: Rash, Wound Musculoskeletal: No Fluid Collection, No Pain, Normal Range of Motion Extremities: Absent: edema - Labs and Meds Comprehensive Metabolic Panel 05/13/17 Range/Units 06:36 Sodium 142 (137-145) mmol/L Potassium 4.3 (3.6-5.0) mmol/L Chloride 105.4 (98-107) mmol/L Carbon Dioxide 23 (22-30) mmol/L BUN 24 H (9-20) mg/dL Creatinine 1.7 H (0.8-1.5) mg/dL Glucose 83 (75-100) mg/dL Calcium 8.1 L (8.4-10.2) mg/dL - Imaging and Cardiology EKG: image reviewed Echo: report reviewed (05/2016: trace MR, mild LVH, EF 50 - 55%. ) Cardiac cath: report reviewed (07/01/2016: EF 50%, severe triple-vessel disease protected by GARCIA to LAD graft, free radial graft to mid obtuse marginal branch , and patent saphenous vein graft sequentially to the PDA and LV branches and the distal part of this graft which was stented 04/2016 widely patent) - Telemetry EKG Rhythm: Sinus Rhythm AV and intraventricular conduction: 1 AV block Chamber hypertrophy or enlargement: left ventricular hypertro Myocardial infarction: inferior ME (old age inde
--- NOTE | 2017-05-13 10:09 | Progress Note ---
Assessment and Plan - Patient Problems (1) Renal insufficiency Status: Chronic Plan to address problem: CKD stage 3 likely secondary to hypertensive nephropathy. Renal function is stable. (2) Proteinuria Status: Chronic Qualifiers: Proteinuria type: P Isolated proteinuria type: I Trimester: T Plan to address problem: Patient is on Lisinopril. (3) Exertional chest pain Status: Acute Plan to address problem: Followed by Prototype [facility]. Subjective Date of service: 05/13/17 Principal diagnosis: chest pain Interval history: Patient is doing ok. Objective - Vital Signs Vital signs: Vital Signs - 12hr 05/12/17 05/13/17 05/13/17 23:15 00:00 04:00 Temperature 98.3 F 98.4 F Pulse Rate 76 65 66 Respiratory 18 18 Rate Blood Pressure 130/71 136/80 O2 Sat by Pulse 97 97 100 Oximetry 05/13/17 05/13/17 05/13/17 08:15 09:31 09:40 Temperature 99.0 F Pulse Rate 69 72 80 Respiratory 18 Rate Blood Pressure 123/74 121/77 123/95 O2 Sat by Pulse 98 Oximetry 05/13/17 05/13/17 05/13/17 09:41 09:42 09:43 Temperature Pulse Rate 88 81 85 Respiratory Rate Blood Pressure 123/76 108/68 113/69 O2 Sat by Pulse Oximetry 05/13/17 09:44 Temperature Pulse Rate 79 Respiratory Rate Blood Pressure 118/73 O2 Sat by Pulse Oximetry - General Appearance General appearance: well-developed, well-nourished, appears stated age, obese, other (no distress) EENT: ATNC, PERRL, mucous membranes moist, hearing intact, vision intact Neck: supple Respiratory: Present: Clear to Ascultation Cardiology: regular, S1S2, no murmurs Gastrointestinal: normoactive bowel sounds, no tenderness, obese Integumentary: no rash Neurologic: no focal deficit, no asterixis, alert and oriented x3, reflexes 2+ and symmetric Musculoskeletal: other (no edema) Psychiatric: mood/affect appropriate, cooperative - Lab 05/11/17 12:14 05/13/17 06:36 Most recent lab results Calcium 8.1 mg/dL (8.4-10.2) L 05/13/17 06:36 Urine Creatinine 120.8 mg/dL (0.1-20.0) H 05/12/17 18:46 Urine Sodium 81 mEq/L 05/12/17 18:46 Urine Total Protein 36 mg/dL (5-11.8) H 05/12/17 18:46
--- NOTE | 2017-05-13 10:33 | Event Note ---
Date: 05/13/17 Lexiscan MPI stress test this AM negative for ischemia. Pt reports resolution of chest pain. Currently stable cardiac status. Pt may discharge home from cardiology standpoint. Follow up in our [place] office with Dr. Holloway on 05/20/2017 @ 10:30AM. Kerline MARTIN NP / DR. ARCHER
[2017-05-13] MEDS: IMDUR PO SCH (10:42)
[2017-05-13] MEDS: PEPCID PO SCH (10:43)
[2017-05-13] MEDS: HALFPRIN EC PO SCH (10:43)
[2017-05-13] MEDS: celeXA PO SCH (10:43)
[2017-05-13] MEDS: PLAVIX PO SCH (10:43)
[2017-05-13] MEDS: ZESTRIL PO SCH (10:44)
[2017-05-13] MEDS: ZYLOPRIM PO SCH (10:44)
[2017-05-13] MEDS: LOPRESSOR PO SCH (10:44)
[2017-05-13] MEDS: NORVASC PO SCH (10:44)
--- NOTE | 2017-05-13 11:34 | Discharge Summary ---
Providers - Providers Date of Admission: 05/11/17 15:56 Date of discharge: 05/13/17 Attending physician: JOHANNA JAY 05/11/17 18:35 Consult to Physician [CONS] Routine Consulting Provider: JOHNNY BAEZ Reason For Exam: Chf/chest pain Place consult to:: [facility] Notified:: DARCY Was contact made?: Yes 05/11/17 18:53 Consult to Physician [CONS] Routine Consulting Provider: SONIA TOMPKINS Reason For Exam: Renal insufficiency Place consult to:: [place] Notified:: office Phone number called:: [phone] Was contact made?: Yes If yes, spoke with:: ana Time called:: 09:21 Primary care physician: SEBAS BUSH Hospitalization Condition: Stable Pertinent studies: Chest x-ray, no acute infiltrate Pulmonary VQ scan, low probability for PE Renal ultrasound, unremarkable Stress test normal Lower extremity Doppler negative for any acute DVT Hospital course: The pt is a 57 YO male with a past medical history significant for CAD, s/p CABG x4 (11/2012) and multiple PCI (most recent 04/2016 VIJAY of the SVG-RCA), HTN, HLP, JANIS, CKD, obesity , PTSD and anxiety followed by Dr. Baez presented with c/o RLE swelling and pain x 3 days [employer] and recurrent midsternal chest tightness with minimal exertion and/or anxiety x several weeks [employer]. Admission ECG showed NAF; Estefany are negative for AMI x 3 sets; DDimer minimally elevated; BLE venous duplex studies were negative. Discahrge diagnosis and management: Chest pain, likely from GERD -with somewhat typical features; recurrent; ECG with NAF; Estefany negative for AMI x 3 sets. - Lexiscan MPI stress test this AM negative for ischemia. Pt reports resolution of chest pain. - Currently stable cardiac status. Pt was cleared for discharge by cardiology - Follow up at [facility] with Dr. Baez on 05/20/2017 @ 10:30AM. CAD with history of IA - s/p CABG and PCI - last [facility] in 06/2016 showed patent grafts and stent. - Echo done 05/2016 showed trace MR, mild LVH, EF 50 - 55% - cont home meds, asp, plavix, BB, ACEI, imdur - no statin as he had side effect before, could be reassessed by revenue cycle administrator outpt CKD stage 3 - Cr was 1.7 today on discharge, Renal US unremarkable - Need further outpatient renal function monitoring HTN - cont home meds ( BB, ACEI, imdur) HLD, - had side effect from lipitor, cont to hold JANIS - assess for CPAp outpt Obesity, counseled for wt reduction H/o PTSD / anxiety - no acute issue - cont celexa Disposition: DC- TO HOME OR SELFCARE Time spent for discharge: 32 minutes Core Measure Documentation - Palliative Care Palliative Care/ Comfort Measures: Not Applicable - Core Measures Any of the following diagnoses?: none Exam - Physical Exam Narrative exam: GENERAL: well-developed and well-nourished AAM lying on bed appeared to be in no discomfort. HEENT: Normocephalic. Atraumatic. No conjunctival congestion or icterus. Patient has moist mucous membranes. NECK: Supple. Trachea midline. CHEST/LUNGS: Clear to auscultated bilaterally, breathing nonlabored. No wheezes crackles or rhonchi. HEART/CARDIOVASCULAR: Regular in rate and rhythm. S1 and S2 positive. ABDOMEN: Abdomen is soft, nontender. Patient has normal bowel sounds. SKIN: There is no rash. Warm and dry. NEURO: No focal motor deficit. Follows command. MUSCULOSKELETAL: No joint effusion or tenderness. EXTRIMITY: No edema, no cyanosis or clubbing. PSYCH: Cooperative. - Constitutional Vitals: Temp Pulse Resp BP Pulse Ox 99.0 F 79 18 118/73 98 05/13/17 08:15 05/13/17 10:44 05/13/17 08:15 05/13/17 10:44 05/13/17 10:18 Plan Activity: advance as tolerated Weight Bearing Status: Weight Bear as Tolerated Diet: low fat, low salt Additional Instructions: Follow up at [facility] office with Dr. Baez on 05/20/2017 @ 10:30AM. Follow up with: SEBAS BUSH MD [Primary Care Provider] - 3-5 Days Prescriptions: Pantoprazole [Protonix] 40 mg PO QDAY #30 tablet
[2017-05-13 13:51] VITALS: BP 116/69
--- NOTE | 2017-05-14 00:54 | Treadmill Report ---
NUCLEAR STUDY REASON FOR STUDY: Chest pain. READING PHYSICIAN: Dipesh Coombs MD IMAGING PROTOCOL: Single isotope used. The patient received 10 mCi of Technetium 99m Tetrofosmin for resting image and 28 mCi of Technetium 99m Tetrofosmin for stress imaging. The imaging for the whole procedure was completed 30-90 minutes following the initial injection of Technetium 99m tetrofosmin. The SPECT imaging in the 180 degree arc was performed in the right anterior oblique projection. Computerized reconstruction of the images was performed for analysis. IMAGING RESULTS: Normal cavity size from stress to rest. Normal distribution of radionuclide in the anterior, inferior, septal, and apical regions. Gated SPECT, EF 57% with no wall motion abnormality. The patient infused with Lexiscan with no EKG changes. SUMMARY: 1. Negative Lexiscan EKG. 2. Normal rest and stress myocardial perfusion scan. No significant stress ischemia. No wall motion abnormality. Gated SPECT, EF 57%. JOB# [id number] TERESITA/SUJATHA
--- NOTE | 2017-05-14 07:15 | Vascular Lab Report ---
LOWER EXTREMITY VENOUS DUPLEX: REASON FOR EXAM: Swelling and elevated d-dimer.. COMMENTS ON THE RIGHT: All veins visualized are freely compressible without evidence of internal echogenicity. Flow is spontaneous and phasic throughout. COMMENTS ON THE LEFT: All veins visualized are freely compressible without evidence of internal echogenicity. Flow is spontaneous and phasic throughout. IMPRESSION: No evidence of acute or chronic deep venous thrombosis in either lower extremity.
== END 2017-05-13 14:29 | disposition home or self-care (01) | DRG 392 ==
LOC: ED 11:48 → 4A 15:56
PROVIDERS: ADMIT Internal Medicine; ATTEND Internal Medicine
DX: K21.9 Gastro-esophageal reflux disease without esophagitis (principal); I24.9 Acute ischemic heart disease, unspecified; I13.0 Hypertensive heart and chronic kidney disease with heart failure and stage 1 through stage 4 chronic kidney disease, or unspecified chronic kidney disease; E78.5 Hyperlipidemia, unspecified; M10.9 Gout, unspecified; I25.10 Atherosclerotic heart disease of native coronary artery without angina pectoris; M19.90 Unspecified osteoarthritis, unspecified site; F32.9 Major depressive disorder, single episode, unspecified; G47.33 Obstructive sleep apnea (adult) (pediatric); F43.10 Post-traumatic stress disorder, unspecified; E66.9 Obesity, unspecified; N18.3 Chronic kidney disease, stage 3 (moderate); Z68.42 Body mass index [BMI] 45.0-49.9, adult; Z88.8 Allergy status to other drugs, medicaments and biological substances; Z98.61 Coronary angioplasty status; Z82.49 Family history of ischemic heart disease and other diseases of the circulatory system; Z95.1 Presence of aortocoronary bypass graft; I25.2 Old myocardial infarction; Z71.3 Dietary counseling and surveillance
CPT/HCPCS: 36415; 71020; 76770; 78452; 78582; 80048; 80053; 81001; 82550; 82553; 82570; 83036; 83880; 84156; 84300; 84484; 85025; 85379; 85610; 85730; 93005; 93010; 93017; 93970; 94660; A9270-GY; A9502; A9540; A9558; J1644; J1940; J2785

== ENCOUNTER 2019-01-04 08:55 | Outpatient (CLI) | payer BC ==
[2019-01-04 09:32] LABS: Hematocrit 40.8 % (35.5-45.6); Mean Corpuscular HGB Conc 34 % (32-34); Mean Corpuscular Volume 90 fl (84-94); Platelet Count 232 K/mm3 (140-440); Red Blood Count 4.53 M/mm3 (3.65-5.03)
[2019-01-04 09:59] LABS: Calcium 8.3 mg/dL (8.4-10.2)
[2019-01-04 10:49] LABS: Chol/HDL Ratio 3.77 %
== END 2019-01-04 08:56 | disposition home or self-care (01) ==
LOC: ECHO 08:55
PROVIDERS: ATTEND Internal Medicine Cardiovascular Disease
DX: I25.10 Atherosclerotic heart disease of native coronary artery without angina pectoris (principal); R94.31 Abnormal electrocardiogram [ECG] [EKG]; I10 Essential (primary) hypertension; Z95.5 Presence of coronary angioplasty implant and graft; Z95.1 Presence of aortocoronary bypass graft
CPT/HCPCS: 36415; 80048; 80061; 85027; 93306

== ENCOUNTER 2019-05-06 12:51 | Inpatient (IN) | payer BC ==
--- NOTE | 2019-05-06 13:28 | Emergency Department Report ---
ED Chest Pain HPI - General Chief Complaint: Chest Pain Stated Complaint: CHEST PAIN Time Seen by Provider: 05/06/19 13:03 Source: patient Mode of arrival: Ambulatory Limitations: No Limitations - History of Present Illness Initial Comments: 59 year old male with a past medical history significant for sleep apnea with CPAP use, CAD, s/p CABG x4 (11/2012) and multiple PCI (most recent 04/2016 VIJAY of the SVG-RCA), last [facility] in 06/2016 showed patent grafts and stent, Echo done 05/2016 showed trace MR, mild LVH, EF 50 - 55% presents to the hospital complai clara of edema and chest pain. Patient has had progressively worsening hand and lower extremity edema 2 weeks. Patient typically sleeps on one pillow with his CPAP machine had to sleep on the couch last night for comfort. He complains of tightness to his extremities and throbbing pain he has reported intermittent exertional left-sided sharp and tight chest pain which is similar to previous angina-related chest pain angina. He's been compliant with his meds including aspirin, Plavix, and isosorbide. He has not taken his when necessary nitroglycerin. Patient has exertional left-sided sharp pain associated with shortness of breath but denies nausea, vomiting, or diaphoresis. He has a his tory of unstable angina. Patient also has history of renal insufficiency and has been awaiting a kidney appointment with the [place]. He does not currently have a director of reimbursement. Patient does not take diuretics. - Related Data Home Medications Medication Instructions Recorded Confirmed Last Taken Allopurinol 30 mg PO DAILY 01/22/17 05/11/17 05/11/17 Amlodipine Besylate 10 mg PO DAILY 01/22/17 05/11/17 05/11/17 Aspirin [Aspirin EC] 81 mg PO DAILY 01/22/17 05/11/17 05/11/17 Citalopram Hydrobromide 30 mg PO DAILY 01/22/17 05/11/17 05/11/17 [Citalopram HBr] Clopidogrel Bisulfate [Plavix] 75 mg PO DAILY 01/22/17 05/11/17 05/11/17 ISOSORBIDE MONOnitrate [Imdur ER] 120 mg PO QDAY 01/22/17 05/11/17 05/11/17 Metoprolol Tartrate 100 mg PO BID 01/22/17 05/11/17 05/11/17 Lisinopril [Zestril TAB] 40 mg PO QDAY 05/11/17 05/11/17 05/11/17 Previous Rx's Medication Instructions Recorded Last Taken Type Pantoprazole [Protonix] 40 mg PO QDAY #30 tablet 05/13/17 Unknown Rx Allergies Allergy/AdvReac Type Severity Reaction Status Date / Time promethazine [From Phenergan] Allergy Nausea Verified 05/06/19 18:16 tramadol Allergy Unknown Verified 05/06/19 18:16 Heart Score - HEART Score History: Moderately suspicious EKG: Non-specific Age: 45-65 Risk factors: > 3 risk factors or hx of atherosclerotic disease Troponin: < normal limit HEART Score: 5 ED Review of Systems ROS: Stated complaint: CHEST PAIN Other details as noted in HPI Comment: All other systems reviewed and negative ED Past Medical Hx - Past Medical History Hx Hypertension: Yes Hx Heart Attack/AMI: Yes Hx Congestive Heart Failure: Yes Hx Renal Disease: Yes Hx Arthritis: Yes Additional medical history: aleep apnea - Surgical History Hx Coronary Stent: Yes Hx Open Heart Surgery: Yes - Social History Smoking Status: Never Smoker - Medications Home Medications: Home Medications Medication Instructions Recorded Confirmed Last Taken Type Allopurinol 30 mg PO DAILY 01/22/17 05/11/17 05/11/17 History Amlodipine Besylate 10 mg PO DAILY 01/22/17 05/11/17 05/11/17 History Aspirin [Aspirin EC] 81 mg PO DAILY 01/22/17 05/11/17 05/11/17 History Citalopram Hydrobromide 30 mg PO DAILY 01/22/17 05/11/17 05/11/17 History [Citalopram HBr] Clopidogrel Bisulfate [Plavix] 75 mg PO DAILY 01/22/17 05/11/17 05/11/17 History ISOSORBIDE MONOnitrate [Imdur ER] 120 mg PO QDAY 01/22/17 05/11/17 05/11/17 History Metoprolol Tartrate 100 mg PO BID 01/22/17 05/11/17 05/11/17 History Lisinopril [Zestril TAB] 40 mg PO QDAY 05/11/17 05/11/17 05/11/17 History Pantoprazole [Protonix] 40 mg PO QDAY #30 tablet 05/13/17 Unknown Rx ED Physical Exam - General Limitations: No Limitations - Other Other exam information: General: No acute distress Eyes: Normal appearance, pupils equal reactive to light, extraocular movements intact ENT: Normal oropharynx Neck: Normal appearance, no C-spine tenderness, no meningismus Chest: Clear to auscultation bilaterally, no wheezes, rales, or crackles Cardiovascular: Regular rate and rhythm, sternotomy scar Abdomen: Soft, nondistended, nontender, no rebound or guarding, normal bowel sounds Back: Normal inspection, nontender Extremity: Normal inspection, no deformity, hand edema, bilateral lower extremity pitting edema Neuro: Alert and oriented 3, speech clear, no gross motor or sensory deficit Skin: No rash, warmth, or erythema ED Course Vital Signs 05/06/19 05/06/19 05/06/19 14:00 14:15 14:30 Temperature Pulse Rate 73 67 69 Respiratory 14 14 12 Rate Blood Pressure 105/66 137/81 132/78 O2 Sat by Pulse 95 Oximetry 05/06/19 05/06/19 05/06/19 15:00 15:19 16:00 Temperature 101 F H Pulse Rate 71 70 Respiratory 15 11 L Rate Blood Pressure 139/79 134/76 O2 Sat by Pulse 97 Oximetry 05/06/19 05/06/19 05/06/19 17:00 18:00 18:23 Temperature 99.6 F Pulse Rate 66 70 Respiratory 11 L 13 Rate Blood Pressure 122/65 123/78 O2 Sat by Pulse 95 98 Oximetry - Reevaluation(s) Reevaluation #1: 05/06/19 15:32 Temperature was performed after initial ED chest pain evaluation and now reveals a fever of 101. Chest x-ray unremarkable. No signs of elevated wbc coung. Source of fever is unknown at this time. Urine collection pending. Sepsis protocol ordered. Tylenol provided. JERSEY score - Jersey Score Age > 65: (0) No Aspirin use within the Past 7 Days: (1) Yes 3 or more CAD Risk Factors: (1) Yes 2 or more Angina events in past 24 hrs: (1) Yes Known CAD with more than 50% Stenosis: (1) Yes Elevated Cardiac Markers: (0) No ST Deviation Greater than 0.5mm: (0) No JERSEY Score: 4 ED Medical Decision Making - Lab Data Result diagrams: 05/06/19 13:59 05/06/19 13:59 Lab Results 05/06/19 05/06/19 05/06/19 Range/Units 13:59 13:59 13:59 WBC 9.3 (4.5-11.0) K/mm3 RBC 3.91 (3.65-5.03) M/mm3 Hgb 12.1 (11.8-15.2) gm/dl Hct 34.9 L (35.5-45.6) % MCV 89 (84-94) fl MCH 31 (28-32) pg MCHC 35 H (32-34) % RDW 13.8 (13.2-15.2) % Plt Count 272 (140-440) K/mm3 Lymph % (Auto) 14.5 (13.4-35.0) % [place] % (Auto) 8.6 H (0.0-7.3) % Eos % (Auto) 2.2 (0.0-4.3) % Baso % (Auto) 0.2 (0.0-1.8) % Lymph # 1.3 (1.2-5.4) K/mm3 [place] # 0.8 (0.0-0.8) K/mm3 Eos # 0.2 (0.0-0.4) K/mm3 Baso # 0.0 (0.0-0.1) K/mm3 Seg Neutrophils % 74.5 H (40.0-70.0) % Seg Neutrophils # 6.9 (1.8-7.7) K/mm3 PT 14.2 (12.2-14.9) Sec. INR 1.13 (0.87-1.13) APTT 33.3 (24.2-36.6) Sec. VBG pH (7.320-7.420) Sodium (137-145) mmol/L Potassium (3.6-5.0) mmol/L Chloride (98-107) mmol/L Carbon Dioxide (22-30) mmol/L Anion Gap mmol/L BUN (9-20) mg/dL Creatinine (0.8-1.5) mg/dL Estimated GFR ml/min BUN/Creatinine Ratio % Glucose (75-100) mg/dL Lactic Acid (0.7-2.0) mmol/L Calcium (8.4-10.2) mg/dL Total Bilirubin (0.1-1.2) mg/dL AST (5-40) units/L ALT (7-56) units/L Alkaline Phosphatase (35-129) units/L Troponin T < 0.010 (0.00-0.029) ng/mL NT-Pro-B Natriuret Pep (0-900) pg/mL Total Protein (6.3-8.2) g/dL Albumin (3.9-5) g/dL Albumin/Globulin Ratio % 05/06/19 05/06/19 05/06/19 Range/Units 13:59 15:43 15:43 WBC (4.5-11.0) K/mm3 RBC (3.65-5.03) M/mm3 Hgb (11.8-15.2) gm/dl Hct (35.5-45.6) % MCV (84-94) fl MCH (28-32) pg MCHC (32-34) % RDW (13.2-15.2) % Plt Count (140-440) K/mm3 Lymph % (Auto) (13.4-35.0) % [place] % (Auto) (0.0-7.3) % Eos % (Auto) (0.0-4.3) % Baso % (Auto) (0.0-1.8) % Lymph # (1.2-5.4) K/mm3 [place] # (0.0-0.8) K/mm3 Eos # (0.0-0.4) K/mm3 Baso # (0.0-0.1) K/mm3 Seg Neutrophils % (40.0-70.0) % Seg Neutrophils # (1.8-7.7) K/mm3 PT (12.2-14.9) Sec. INR (0.87-1.13) APTT (24.2-36.6) Sec. VBG pH (7.320-7.420) Sodium 140 (137-145) mmol/L Potassium 4.6 (3.6-5.0) mmol/L Chloride 102.1 (98-107) mmol/L Carbon Dioxide 22 (22-30) mmol/L Anion Gap 21 mmol/L BUN 23 H (9-20) mg/dL Creatinine 2.0 H (0.8-1.5) mg/dL Estimated GFR 35 ml/min BUN/Creatinine Ratio 12 % Glucose 91 (75-100) mg/dL Lactic Acid 1.10 (0.7-2.0) mmol/L Calcium 9.1 (8.4-10.2) mg/dL Total Bilirubin 0.40 (0.1-1.2) mg/dL AST 16 (5-40) units/L ALT 14 (7-56) units/L Alkaline Phosphatase 93 (35-129) units/L Troponin T < 0.010 (0.00-0.029) ng/mL NT-Pro-B Natriuret Pep 560.1 (0-900) pg/mL Total Protein 7.8 (6.3-8.2) g/dL Albumin 3.9 (3.9-5) g/dL Albumin/Globulin Ratio 1.0 % // Range/Units 15:43 WBC (4.5-11.0) K/mm3 RBC (3.65-5.03) M/mm3 Hgb (11.8-15.2) gm/dl Hct (35.5-45.6) % MCV (84-94) fl MCH (28-32) pg MCHC (32-34) % RDW (13.2-15.2) % Plt Count (140-440) K/mm3 Lymph % (Auto) (13.4-35.0) % [place] % (Auto) (0.0-7.3) % Eos % (Auto) (0.0-4.3) % Baso % (Auto) (0.0-1.8) % Lymph # (1.2-5.4) K/mm3 [place] # (0.0-0.8) K/mm3 Eos # (0.0-0.4) K/mm3 Baso # (0.0-0.1) K/mm3 Seg Neutrophils % (40.0-70.0) % Seg Neutrophils # (1.8-7.7) K/mm3 PT (12.2-14.9) Sec. INR (0.87-1.13) APTT (24.2-36.6) Sec. VBG pH 7.373 (7.320-7.420) Sodium (137-145) mmol/L Potassium (3.6-5.0) mmol/L Chloride (98-107) mmol/L Carbon Dioxide (22-30) mmol/L Anion Gap mmol/L BUN (9-20) mg/dL Creatinine (0.8-1.5) mg/dL Estimated GFR ml/min BUN/Creatinine Ratio % Glucose (75-100) mg/dL Lactic Acid (0.7-2.0) mmol/L Calcium (8.4-10.2) mg/dL Total Bilirubin (0.1-1.2) mg/dL AST (5-40) units/L ALT (7-56) units/L Alkaline Phosphatase (35-129) units/L Troponin T (0.00-0.029) ng/mL NT-Pro-B Natriuret Pep (0-900) pg/mL Total Protein (6.3-8.2) g/dL Albumin (3.9-5) g/dL Albumin/Globulin Ratio % - EKG Data -: EKG Interpreted by [place] EKG shows normal: sinus rhythm, axis (qrs 9), QRS complexes (qrsd 129), ST-T waves (ant lat st depression) Rate: normal (77) - EKG Data When compared to previous EKG there are: no significant change - Radiology Data Radiology results: report reviewed CHEST 1 VIEW INDICATION: cp, sob, leg edema. COMPARISON: 9 FINDINGS: SUPPORT DEVICES: None. HEART / MEDIASTINUM: No significant abnormality. LUNGS / PLEURA: Increased bronchovascular markings are noted throughout both lungs. No evidence of pleural effusion. No pneumothorax. ADDITIONAL FINDINGS: Median sternotomy changes noted IMPRESSION: 1. Diffuse prominent bronchovascular markings, pul monary edema is a concern - Medical Decision Making cp initial troponin negative. Patient will be admitted for further workup given extensive cardiac history Chest x-ray suggestive of mild CHF with peripheral edema Fever of unknown origin UA pending at disposition Hospitalist informed for admission Cardiac consult ordered - Differential Diagnosis unstable angina, CT, CHF, renal failure, liver failue Critical Care Time: No Critical care attestation.: If time is entered above; I have spent that time in minutes in the direct care of this critically ill patient, excluding procedure time. ED Disposition Clinical Impression: Chest pain, Peripheral edema, Hx of CABG, H/O heart artery stent, Fever, Renal insufficiency Disposition: DC-09 OP ADMIT IP TO THIS HOSP Is pt being admited?: Yes Condition: Stable Time of Disposition: 15:36 (Dr Garcias/hosp)
--- NOTE | 2019-05-06 14:32 | XRay Report ---
CHEST 1 VIEW INDICATION: cp, sob, leg edema. COMPARISON: 9 FINDINGS: SUPPORT DEVICES: None. HEART / MEDIASTINUM: No significant abnormality. LUNGS / PLEURA: Increased bronchovascular markings are noted throughout both lungs. No evidence of pl eural effusion. No pneumothorax. ADDITIONAL FINDINGS: Median sternotomy changes noted IMPRESSION: 1. Diffuse prominent bronchovascular markings, pulmonary edema is a concern Signer Name: David Zhou MD Signed: 05/06/2019 2:27 PM Workstation Name: [id number]
[2019-05-06 14:55] LABS: Basophils % (Auto) 0.2 % (0.0-1.8); Eosinophils # (Auto) 0.2 K/mm3 (0.0-0.4); Eosinophils % (Auto) 2.2 % (0.0-4.3); Hematocrit 34.9 % (35.5-45.6); Hemoglobin 12.1 gm/dl (11.8-15.2); Lymphocytes # (Auto) 1.3 K/mm3 (1.2-5.4); Lymphocytes % (Auto) 14.5 % (13.4-35.0); Mean Corpuscular HGB Conc 35 % (32-34); Mean Corpuscular Volume 89 fl (84-94); Monocytes # (Auto) 0.8 K/mm3 (0.0-0.8); Monocytes % (Auto) 8.6 % (0.0-7.3); Platelet Count 272 K/mm3 (140-440); Red Blood Count 3.91 M/mm3 (3.65-5.03); Red Cell Distribution Width 13.8 % (13.2-15.2)
[2019-05-06 15:02] LABS: Albumin 3.9 g/dL (3.9-5); Calcium 9.1 mg/dL (8.4-10.2)
[2019-05-06] MEDS ORDERED: ZOFRAN IV ONE (15:02)
[2019-05-06] MEDS ORDERED: MORPHINE IV ONE (15:02)
[2019-05-06 15:06] LABS: INR 1.13 (0.87-1.13)
[2019-05-06 15:07] LABS: Partial Thromboplastin Time 33.3 Sec. (24.2-36.6)
[2019-05-06] MEDS ORDERED: TYLENOL PO ONE (15:34)
[2019-05-06 16:31] LABS: Bilirubin,Urine NEG (Negative); Blood,Urine NEG (Negative); Color,Urine Yellow (Yellow); Mucus,Urine FEW /HPF; Urobilinogen,Urine < 2.0 mg/dL (<2.0); WBC,Urine < 1.0 /HPF (0.0-6.0)
[2019-05-06] MEDS ORDERED: DILAUDID ONE (18:17)
[2019-05-06] MEDS ORDERED: DILAUDID IV PRN (18:20)
[2019-05-06] MEDS ORDERED: ZOFRAN IV PRN (21:14)
[2019-05-06] MEDS ORDERED: PERCOCET 5/325 PO PRN (21:14)
[2019-05-06] MEDS ORDERED: SODIUM CHLORIDE FLUSH SYRINGE 10 ML IV PRN (21:14)
[2019-05-06] MEDS ORDERED: ZESTRIL PO SCH (22:00)
[2019-05-06] MEDS: LOPRESSOR PO SCH (22:58)
[2019-05-06] MEDS: NACL 0.9% 1000 ML 1,000 ML IV SCH (22:59)
[2019-05-06] MEDS: HALFPRIN EC PO SCH (22:59)
[2019-05-06] MEDS: SODIUM CHLORIDE FLUSH SYRINGE 10 ML IV SCH (23:10)
[2019-05-06] MEDS: IMDUR PO SCH (23:30)
[2019-05-06] MEDS: PLAVIX PO SCH (23:30)
[2019-05-06] MEDS: ZYLOPRIM PO SCH (23:30)
[2019-05-06] MEDS: celeXA PO SCH (23:30)
[2019-05-06] MEDS: NORVASC PO SCH (23:30)
[2019-05-07] MEDS: DILAUDID IV PRN ×4 (00:35→22:52)
[2019-05-07] MEDS: RANEXA ER PO SCH ×3 (00:36→21:04)
--- NOTE | 2019-05-07 06:33 | History and Physical Report ---
History of Present Illness Date of examination: 05/07/19 Date of admission: 05/06/19 15:47 Chief complaint: Left sided chest pain for couple of days History of present illness: 59 year old male with a past medical history significant for sleep apnea with CPAP use, CAD, s/p CABG x4 (11/2012) and multiple PCI (most recent 04/2016 [facility] of the SVG-RCA), last LHC in 06/2016 showed patent grafts and stent, Echo done 05/2016 showed trace MR, mild LVH, EF 50 - 55% presents to the hospital complaining of edema and chest pain. Patient has had progressively worsening hand and lower extremity edema 2 weeks. Patient typically sleeps on one pillow with his CPAP machine had to sleep on the couch last night for comfort. He complains of tightness to his extremities and throbbing pain he has reported intermittent exertional left-sided sharp and tight chest pain which is similar to previous angina-related chest pain angina. He's been compliant with his meds including aspirin, Plavix, and isosorbide. Patient has exertional left-sided sharp pain associated with shortness of breath but denies nausea, vomiting, or diaphoresis. He has a history of unstable angina. Patient also has history of renal insufficiency and has been awaiting a kidney appointment with the [place]. He does not currently have a fitter hand. Patient does not take diuretics. - Past Medical History Hypertension: Yes Heart Attack/AMI: Yes Congestive Heart Failure: Yes Renal Disease: Yes Arthritis: Yes Additional medical history: aleep apnea Surgical History Hx Coronary Stent: Yes Hx Open Heart Surgery: Yes CABG x4 in 2012 Social History Smoking Status: Never Smoker Family History Htn Medications Home Medications: Home Medications Medication Instructions Recorded Confirmed Last Taken Type Allopurinol 30 mg PO DAILY 01/22/17 05/11/17 05/11/17 History Amlodipine Besylate 10 mg PO DAILY 01/22/17 05/11/17 05/11/17 History Aspirin [Aspirin EC] 81 mg PO DAILY 01/22/17 05/11/17 05/11/17 History Citalopram Hydrobromide 30 mg PO DAILY 01/22/17 05/11/17 05/11/17 History [Citalopram HBr] Clopidogrel Bisulfate [Plavix] 75 mg PO DAILY 01/22/17 05/11/17 05/11/17 History ISOSORBIDE MONOnitrate [Imdur ER] 120 mg PO QDAY 01/22/17 05/11/17 05/11/17 History Metoprolol Tartrate 100 mg PO BID 01/22/17 05/11/17 05/11/17 History Lisinopril [Zestril TAB] 40 mg PO QDAY 05/11/17 05/11/17 05/11/17 History Pantoprazole [Protonix] 40 mg PO QDAY #30 tablet 05/13/17 Unknown Rx Review of Systems ROS: Stated complaint: CHEST PAIN Other details as noted in HPI Orthopnea present Bilateral lower extremity edema present. Comment: All other systems reviewed and negative 14 point review of systems done and otherwise negative Medications and Allergies Allergies Allergy/AdvReac Type Severity Reaction Status Date / Time promethazine [From Phenergan] Allergy Nausea Verified 05/06/19 18:16 tramadol Allergy Unknown Verified 05/06/19 18:16 Home Medications Medication Instructions Recorded Confirmed Last Taken Type Allopurinol 150 mg PO DAILY 01/22/17 05/06/19 05/11/17 History Amlodipine Besylate 10 mg PO DAILY 01/22/17 05/06/19 05/11/17 History Aspirin [Aspirin EC] 81 mg PO DAILY 01/22/17 05/06/19 05/11/17 History Citalopram Hydrobromide 30 mg PO DAILY 01/22/17 05/06/19 05/11/17 History [Citalopram HBr] Clopidogrel Bisulfate [Plavix] 75 mg PO DAILY 01/22/17 05/06/19 05/11/17 History ISOSORBIDE MONOnitrate [Imdur ER] 120 mg PO QDAY 01/22/17 05/06/19 05/11/17 History Metoprolol Tartrate 100 mg PO BID 01/22/17 05/06/19 05/11/17 History Losartan [Cozaar] 50 mg PO QDAY 05/06/19 05/06/19 Unknown History Ranolazine [Ranexa] 500 mg PO BID 05/06/19 05/06/19 Unknown History Active Meds: Active Medications Acetaminophen (Tylenol) 650 mg PO Q4H PRN PRN Reason: Pain MILD(1-3)/Fever >100.5/MISHRA Allopurinol (Zyloprim) 150 mg PO DAILY [facility] Last Admin: 05/06/19 23:30 Dose: Not Given Documented by: Amlodipine Besylate (Norvasc) 10 mg PO DAILY [facility] Last Admin: 05/06/19 23:30 Dose: Not Given Documented by: Aspirin (Halfprin Ec) 81 mg PO DAILY [facility] Last Admin: 05/06/19 22:59 Dose: 81 mg Documented by: Citalopram Hydrobromide (Celexa) 30 mg PO DAILY [facility] Last Admin: 05/06/19 23:30 Dose: Not Given Documented by: Clopidogrel Bisulfate (Plavix) 75 mg PO DAILY [facility] Last Admin: 05/06/19 23:30 Dose: Not Given Documented by: Hydromorphone HCl (Dilaudid) 0.5 mg IV Q3H PRN PRN Reason: Pain , Severe (7-10) Last Admin: 05/07/19 04:23 Dose: 0.5 mg Documented by: Sodium Chloride (Nacl 0.9% 1000 Ml) 1,000 mls @ 75 mls/hr IV DIRECT [facility] Last Admin: 05/06/19 22:59 Dose: 75 mls/hr Documented by: Isosorbide Mononitrate (Imdur) 120 mg PO QDAY [facility] Last Admin: 05/06/19 23:30 Dose: Not Given Documented by: Lisinopril (Zestril) 40 mg PO QDAY [facility] Last Admin: 05/06/19 23:30 Dose: Not Given Documented by: Metoprolol Tartrate (Lopressor) 100 mg PO BID [facility] Last Admin: 05/06/19 22:58 Dose: 100 mg Documented by: Ondansetron HCl (Zofran) 4 mg IV Q8H PRN PRN Reason: Nausea And Vomiting Oxycodone/Acetaminophen (Percocet 5/325) 1 tab PO Q6H PRN PRN Reason: Pain, Moderate (4-6) Ranolazine (Ranexa Er) 500 mg PO BID [facility] Last Admin: 05/07/19 00:36 Dose: 500 mg Documented by: Sodium Chloride (Sodium Chloride Flush Syringe 10 Ml) 10 ml IV BID [facility] Last Admin: 05/06/19 23:10 Dose: 10 ml Documented by: Sodium Chloride (Sodium Chloride Flush Syringe 10 Ml) 10 ml IV PRN PRN PRN Reason: LINE FLUSH Exam - Constitutional Vitals: Temp Pulse Resp BP Pulse Ox 98.7 F 65 18 111/64 95 05/07/19 04:16 05/07/19 04:16 05/07/19 04:53 05/07/19 04:16 05/07/19 04:16 General appearance: Present: mild distress, well-nourished - EENT Eyes: Present: PERRL ENT: hearing intact, clear oral mucosa - Neck Neck: Present: supple, normal ROM - Respiratory Respiratory effort: normal Respiratory: bilateral: CTA - Cardiovascular Heart rate: 78 Rhythm: regular Heart Sounds: Present: S1 & S2. Absent: rub, click - Extremities Extremities: no ischemia, pulses intact, pulses symmetrical, No edema Extremity abnormal: edema (2 plus both lower extremities) Peripheral Pulses: within normal limits - Abdominal General gastrointestinal: Present: soft, non-tender, non-distended, normal bowel sounds Male genitourinary: Present: normal - Rectal Rectal Exam: deferred - Integumentary Integumentary: Present: clear, warm, dry - Musculoskeletal Musculoskeletal: gait normal, strength equal bilaterally - Psychiatric Psychiatric: appropriate mood/affect, intact judgment & insight - Neurologic Neurologic: CNII-XII intact, moves all extremities - Allied Health Allied health notes reviewed: nursing, case management Results - Labs CBC & Chem 7: 05/06/19 13:59 05/06/19 13:59 Labs: Laboratory Last Values WBC 9.3 K/mm3 (4.5-11.0) 05/06/19 13:59 RBC 3.91 M/mm3 (3.65-5.03) 05/06/19 13:59 Hgb 12.1 gm/dl (11.8-15.2) 05/06/19 13:59 Hct 34.9 % (35.5-45.6) L 05/06/19 13:59 MCV 89 fl (84-94) 05/06/19 13:59 MCH 31 pg (28-32) 05/06/19 13:59 MCHC 35 % (32-34) H 05/06/19 13:59 RDW 13.8 % (13.2-15.2) 05/06/19 13:59 Plt Count 272 K/mm3 (140-440) 05/06/19 13:59 Lymph % (Auto) 14.5 % (13.4-35.0) 05/06/19 13:59 [place] % (Auto) 8.6 % (0.0-7.3) H 05/06/19 13:59 Eos % (Auto) 2.2 % (0.0-4.3) 05/06/19 13:59 Baso % (Auto) 0.2 % (0.0-1.8) 05/06/19 13:59 Lymph # 1.3 K/mm3 (1.2-5.4) 05/06/19 13:59 [place] # 0.8 K/mm3 (0.0-0.8) 05/06/19 13:59 Eos # 0.2 K/mm3 (0.0-0.4) 05/06/19 13:59 Baso # 0.0 K/mm3 (0.0-0.1) 05/06/19 13:59 Seg Neutrophils % 74.5 % (40.0-70.0) H 05/06/19 13:59 Seg Neutrophils # 6.9 K/mm3 (1.8-7.7) 05/06/19 13:59 PT 14.2 Sec. (12.2-14.9) 05/06/19 13:59 INR 1.13 (0.87-1.13) 05/06/19 13:59 APTT 33.3 Sec. (24.2-36.6) 05/06/19 13:59 VBG pH 7.373 (7.320-7.420) 05/06/19 15:43 Sodium 140 mmol/L (137-145) 05/06/19 13:59 Potassium 4.6 mmol/L (3.6-5.0) 05/06/19 13:59 Chloride 102.1 mmol/L (98-107) 05/06/19 13:59 Carbon Dioxide 22 mmol/L (22-30) 05/06/19 13:59 21 mmol/L 05/06/19 13:59 BUN 23 mg/dL (9-20) H 05/06/19 13:59 2.0 mg/dL (0.8-1.5) H 05/06/19 13:59 Estimated GFR 35 ml/min 05/06/19 13:59 12 % 05/06/19 13:59 Glucose 91 mg/dL (75-100) 05/06/19 13:59 Lactic Acid 1.10 mmol/L (0.7-2.0) 05/06/19 15:43 Calcium 9.1 mg/dL (8.4-10.2) 05/06/19 13:59 0.40 mg/dL (0.1-1.2) 05/06/19 13:59 AST 16 units/L (5-40) 05/06/19 13:59 ALT 14 units/L (7-56) 05/06/19 13:59 93 units/L (35-129) 05/06/19 13:59 < 0.010 ng/mL (0.00-0.029) 05/06/19 20:23 NT-Pro-B Natriuret Pep 560.1 pg/mL (0-900) 05/06/19 13:59 7.8 g/dL (6.3-8.2) 05/06/19 13:59 3.9 g/dL (3.9-5) 05/06/19 13:59 1.0 % 05/06/19 13:59 Yellow (Yellow) 05/06/19 16:00 Clear (Clear) 05/06/19 16:00 5.0 (5.0-7.0) 05/06/19 16:00 Ur Specific [place] 1.015 (1.003-1.030) 05/06/19 16:00 100 mg/dl mg/dL (Negative) 05/06/19 16:00 Neg mg/dL (Negative) 05/06/19 16:00 Neg mg/dL (Negative) 05/06/19 16:00 Neg (Negative) 05/06/19 16:00 Neg (Negative) 05/06/19 16:00 Neg (Negative) 05/06/19 16:00 < 2.0 mg/dL (<2.0) 05/06/19 16:00 Ur Leukocyte Esterase Neg (Negative) 05/06/19 16:00 < 1.0 /HPF (0.0-6.0) 05/06/19 16:00 3.0 /HPF (0.0-6.0) 05/06/19 16:00 U Epithel Cells (Auto) < 1.0 /HPF (0-13.0) 05/06/19 16:00 Few /HPF 05/06/19 16:00 - Imaging and Cardiology EKG: report reviewed Chest x-ray: report reviewed Imaging and Cardiology: EKG SINUS RHYTHM BORDERLINE PROLONGED SD INTERVAL PROBABLE LEFT ATRIAL ENLARGEMENT NONSPECIFIC INTRAVENTRICULAR CONDUCTION DELAY NONSPECIFIC STT CHANGES CXR Concern for pulmonary edema Assessment and Plan Advance Directives: Yes (Full code) VTE prophylaxis?: Chemical Plan of care discussed with patient/family: Yes - Patient Problems (1) Acute exacerbation of CHF (congestive heart failure) Current Visit: Yes Status: Acute Qualifiers: Heart failure type: combined systolic and diastolic Qualified Code(s): I50.43 - Acute on chronic combined systolic (congestive) and diastolic (congestive) heart failure Plan to address problem: IV Lasix for now Check ECHO for EF /Valve function (2) Acute coronary syndrome Current Visit: No Status: Acute Plan to address problem: Continues to have chest pain Recent cath couple of years ago was negative (3) Lower extremity edema Current Visit: No Status: Acute Plan to address problem: IV Lasix Needs to loose weight Venous insufficiency (4) Coronary artery disease Current Visit: No Status: Chronic Qualifiers: Coronary Disease-Associated Artery/Lesion type: [place] artery Associated angina: with unspecified angina Plan to address problem: Cont Isosorbide and ASA (5) Hypertension Current Visit: No Status: Chronic Qualifiers: Hypertension type: essential hypertension Qualified Code(s): I10 - Essential (primary) hypertension Plan to address problem: Cont antihypertensives (6) Gout Current Visit: No Status: Inactive Qualifiers: Gout site: unspecified site Presence of tophus: without tophus Plan to address problem: Cont allopurinol for prevention (7) DVT prophylaxis Current Visit: No Status: Acute Plan to address problem: On Lovenox and GI prophylaxis
[2019-05-07] MEDS ORDERED: K-DUR PO SCH (08:00)
[2019-05-07] MEDS: PLAVIX PO SCH (10:57)
[2019-05-07] MEDS: ZYLOPRIM PO SCH (10:57)
[2019-05-07] MEDS: HALFPRIN EC PO SCH (10:57)
[2019-05-07] MEDS: celeXA PO SCH (10:58)
[2019-05-07] MEDS: LOPRESSOR PO SCH ×2 (10:59→21:04)
[2019-05-07] MEDS: IMDUR PO SCH (10:59)
[2019-05-07] MEDS: SODIUM CHLORIDE FLUSH SYRINGE 10 ML IV SCH ×2 (11:00→21:04)
[2019-05-07] MEDS: TYLENOL PO PRN (11:01)
[2019-05-07] MEDS: NORVASC PO SCH (11:06)
--- NOTE | 2019-05-07 11:14 | Progress Note ---
Assessment and Plan Assessment and plan: Chest pain Admitted to Tele cardiology following acute on chronic CHF lasix iv Lopressor CAD s/p CABG s/p PCI cont Plavix, imdur, Lopressor Cardiology following HTN Monitor BP Morbid obesity Pain right shoulder Obtain Xr Shoulder he has history of arthritis both shoulders Arthritis Full code status History Interval history: Chest pain Right shoulder pain with difficultly lifting RUE because of pain Hospitalist Physical - Physical exam Narrative exam: Gen: Not in acute distress, lying in bed, morbidly obese HEENT: Normocephalic, atraumatic Neck: supple, no JVD Heart: S1 and S2 reg, no murmurs, rubs or gallop Lungs: Clear to auscultation, no crackles, no rhonchi Abd: soft, non tender, non distended, normal BS, Ext: Tender right shoulder, Bilat leg edema, no clubbing, no cyanosis Neuro: Awake,alert, Oriented X 3. No focal neurological signs Psych: normal mood - Constitutional Vitals: Temp Pulse Resp BP Pulse Ox 99.2 F 74 18 136/90 97 05/07/19 08:41 05/07/19 11:06 05/07/19 08:41 05/07/19 11:06 05/07/19 08:41 General appearance: Present: obese Results - Labs CBC & Chem 7: 05/06/19 13:59 05/06/19 13:59 Labs: Laboratory Last Values WBC 9.3 K/mm3 (4.5-11.0) 05/06/19 13:59 RBC 3.91 M/mm3 (3.65-5.03) 05/06/19 13:59 Hgb 12.1 gm/dl (11.8-15.2) 05/06/19 13:59 Hct 34.9 % (35.5-45.6) L 05/06/19 13:59 MCV 89 fl (84-94) 05/06/19 13:59 MCH 31 pg (28-32) 05/06/19 13:59 MCHC 35 % (32-34) H 05/06/19 13:59 RDW 13.8 % (13.2-15.2) 05/06/19 13:59 Plt Count 272 K/mm3 (140-440) 05/06/19 13:59 Lymph % (Auto) 14.5 % (13.4-35.0) 05/06/19 13:59 [place] % (Auto) 8.6 % (0.0-7.3) H 05/06/19 13:59 Eos % (Auto) 2.2 % (0.0-4.3) 05/06/19 13:59 Baso % (Auto) 0.2 % (0.0-1.8) 05/06/19 13:59 Lymph # 1.3 K/mm3 (1.2-5.4) 05/06/19 13:59 [place] # 0.8 K/mm3 (0.0-0.8) 05/06/19 13:59 Eos # 0.2 K/mm3 (0.0-0.4) 05/06/19 13:59 Baso # 0.0 K/mm3 (0.0-0.1) 05/06/19 13:59 Seg Neutrophils % 74.5 % (40.0-70.0) H 05/06/19 13:59 Seg Neutrophils # 6.9 K/mm3 (1.8-7.7) 05/06/19 13:59 PT 14.2 Sec. (12.2-14.9) 05/06/19 13:59 INR 1.13 (0.87-1.13) 05/06/19 13:59 APTT 33.3 Sec. (24.2-36.6) 05/06/19 13:59 VBG pH 7.373 (7.320-7.420) 05/06/19 15:43 Sodium 140 mmol/L (137-145) 05/06/19 13:59 Potassium 4.6 mmol/L (3.6-5.0) 05/06/19 13:59 Chloride 102.1 mmol/L (98-107) 05/06/19 13:59 Carbon Dioxide 22 mmol/L (22-30) 05/06/19 13:59 21 mmol/L 05/06/19 13:59 BUN 23 mg/dL (9-20) H 05/06/19 13:59 2.0 mg/dL (0.8-1.5) H 05/06/19 13:59 Estimated GFR 35 ml/min 05/06/19 13:59 12 % 05/06/19 13:59 Glucose 91 mg/dL (75-100) 05/06/19 13:59 Lactic Acid 1.10 mmol/L (0.7-2.0) 05/06/19 15:43 Calcium 9.1 mg/dL (8.4-10.2) 05/06/19 13:59 0.40 mg/dL (0.1-1.2) 05/06/19 13:59 AST 16 units/L (5-40) 05/06/19 13:59 ALT 14 units/L (7-56) 05/06/19 13:59 93 units/L (35-129) 05/06/19 13:59 < 0.010 ng/mL (0.00-0.029) 05/06/19 20:23 NT-Pro-B Natriuret Pep 560.1 pg/mL (0-900) 05/06/19 13:59 7.8 g/dL (6.3-8.2) 05/06/19 13:59 3.9 g/dL (3.9-5) 05/06/19 13:59 1.0 % 05/06/19 13:59 Yellow (Yellow) 05/06/19 16:00 Clear (Clear) 05/06/19 16:00 5.0 (5.0-7.0) 05/06/19 16:00 Ur Specific [place] 1.015 (1.003-1.030) 05/06/19 16:00 100 mg/dl mg/dL (Negative) 05/06/19 16:00 Neg mg/dL (Negative) 05/06/19 16:00 Neg mg/dL (Negative) 05/06/19 16:00 Neg (Negative) 05/06/19 16:00 Neg (Negative) 05/06/19 16:00 Neg (Negative) 05/06/19 16:00 < 2.0 mg/dL (<2.0) 05/06/19 16:00 Ur Leukocyte Esterase Neg (Negative) 05/06/19 16:00 < 1.0 /HPF (0.0-6.0) 05/06/19 16:00 3.0 /HPF (0.0-6.0) 05/06/19 16:00 U Epithel Cells (Auto) < 1.0 /HPF (0-13.0) 05/06/19 16:00 Few /HPF 05/06/19 16:00 Active Medications - Current Medications Current Medications: Generic Name Dose Route Start Last Admin Trade Name Freq PRN Reason Stop Dose Admin Acetaminophen 650 mg 05/06/19 21:14 05/07/19 11:01 Tylenol PO 650 mg Q4H PRN Administration Pain MILD(1-3)/Fever >100.5/MISHRA Allopurinol 150 mg 05/06/19 22:00 05/07/19 10:57 Zyloprim PO 150 mg DAILY [facility] Administration Amlodipine Besylate 10 mg 05/06/19 22:00 05/07/19 11:06 Norvasc PO Not Given DAILY [facility] Aspirin 81 mg 05/06/19 22:00 05/07/19 10:57 Halfprin Ec PO 81 mg DAILY [facility] Administration Citalopram Hydrobromide 30 mg 05/06/19 22:00 05/07/19 10:58 Celexa PO 30 mg DAILY [facility] Administration Clopidogrel Bisulfate 75 mg 05/06/19 22:00 05/07/19 10:57 Plavix PO 75 mg DAILY [facility] Administration Furosemide 40 mg 05/07/19 18:00 Lasix IV 0600,1800 [facility] Hydromorphone HCl 0.5 mg 05/06/19 21:14 05/07/19 04:23 Dilaudid IV 0.5 mg Q3H PRN Administration Pain , Severe (7-10) Sodium Chloride 1,000 mls @ 75 mls/hr 05/06/19 22:00 05/06/19 22:59 Nacl 0.9% 1000 Ml IV 75 mls/hr DIRECT [facility] Administration Isosorbide Mononitrate 120 mg 05/06/19 22:00 05/07/19 10:59 Imdur PO 120 mg QDAY [facility] Administration Metoprolol Tartrate 100 mg 05/06/19 22:00 05/07/19 10:59 Lopressor PO 100 mg BID [facility] Administration Ondansetron HCl 4 mg 05/06/19 21:14 Zofran IV Q8H PRN Nausea And Vomiting Oxycodone/Acetaminophen 1 tab 05/06/19 21:14 Percocet 5/325 PO Q6H PRN Pain, Moderate (4-6) Ranolazine 500 mg 05/07/19 00:30 05/07/19 10:57 Ranexa Er PO 500 mg BID [facility] Administration Sodium Chloride 10 ml 05/06/19 22:00 05/07/19 11:00 Sodium Chloride Flush Syringe 10 Ml IV 10 ml BID [facility] Administration Sodium Chloride 10 ml 05/06/19 21:14 Sodium Chloride Flush Syringe 10 Ml IV PRN PRN LINE FLUSH
--- NOTE | 2019-05-07 13:21 | Consultation ---
History of Present Illness Consult date: 05/07/19 Consult reason: chest pain, known to you History of present illness: 59 yo male known to our service with cad. he is s/p pci (most recent 2015) and cabg (2012). he has been followed in the office by dr arellano with stable angina but presents to [facility] at this time with an increase in frequency of chest tightness, worse than the stable pattern and similar to symptoms he had in the past associated with myocardial infarction and prior coronary revascularization. he also has multiple rheum complaints involving his arms and legs. he also has been c/o increasing sob and lower extremity swelling. he has a hx of sleep apnea and uses cpap. no palp or syncope. he has a hx of htn and chf. the ecg reveals sinus rhythm,old inf mi, no acute changes. trop neg x2. cr 2.0 Past History Past Medical History: arthritis, CAD, heart failure, hypertension, renal failure Past Surgical History: CABG, Other (pci) Social history: denies: smoking, alcohol abuse Medications and Allergies Allergies Allergy/AdvReac Type Severity Reaction Status Date / Time promethazine [From Phenergan] Allergy Nausea Verified 05/06/19 18:16 tramadol Allergy Unknown Verified 05/06/19 18:16 Home Medications Medication Instructions Recorded Confirmed Last Taken Type Allopurinol 150 mg PO DAILY 01/22/17 05/06/19 05/11/17 History Amlodipine Besylate 10 mg PO DAILY 01/22/17 05/06/19 05/11/17 History Aspirin [Aspirin EC] 81 mg PO DAILY 01/22/17 05/06/19 05/11/17 History Citalopram Hydrobromide 30 mg PO DAILY 01/22/17 05/06/19 05/11/17 History [Citalopram HBr] Clopidogrel Bisulfate [Plavix] 75 mg PO DAILY 01/22/17 05/06/19 05/11/17 History ISOSORBIDE MONOnitrate [Imdur ER] 120 mg PO QDAY 01/22/17 05/06/19 05/11/17 History Metoprolol Tartrate 100 mg PO BID 01/22/17 05/06/19 05/11/17 History Losartan [Cozaar] 50 mg PO QDAY 05/06/19 05/06/19 Unknown History Ranolazine [Ranexa] 500 mg PO BID 05/06/19 05/06/19 Unknown History Active Meds: Active Medications Acetaminophen (Tylenol) 650 mg PO Q4H PRN PRN Reason: Pain MILD(1-3)/Fever >100.5/MISHRA Last Admin: 05/07/19 11:01 Dose: 650 mg Documented by: Allopurinol (Zyloprim) 150 mg PO DAILY [facility] Last Admin: 05/07/19 10:57 Dose: 150 mg Documented by: Amlodipine Besylate (Norvasc) 10 mg PO DAILY [facility] Last Admin: 05/07/19 11:06 Dose: Not Given Documented by: Aspirin (Halfprin Ec) 81 mg PO DAILY [facility] Last Admin: 05/07/19 10:57 Dose: 81 mg Documented by: Citalopram Hydrobromide (Celexa) 30 mg PO DAILY [facility] Last Admin: 05/07/19 10:58 Dose: 30 mg Documented by: Clopidogrel Bisulfate (Plavix) 75 mg PO DAILY [facility] Last Admin: 05/07/19 10:57 Dose: 75 mg Documented by: Furosemide (Lasix) 40 mg IV 0600,1800 [facility] Hydromorphone HCl (Dilaudid) 0.5 mg IV Q3H PRN PRN Reason: Pain , Severe (7-10) Last Admin: 05/07/19 04:23 Dose: 0.5 mg Documented by: Sodium Chloride (Nacl 0.9% 1000 Ml) 1,000 mls @ 75 mls/hr IV DIRECT [facility] Last Admin: 05/06/19 22:59 Dose: 75 mls/hr Documented by: Isosorbide Mononitrate (Imdur) 120 mg PO QDAY [facility] Last Admin: 05/07/19 10:59 Dose: 120 mg Documented by: Metoprolol Tartrate (Lopressor) 100 mg PO BID [facility] Last Admin: 05/07/19 10:59 Dose: 100 mg Documented by: Ondansetron HCl (Zofran) 4 mg IV Q8H PRN PRN Reason: Nausea And Vomiting Oxycodone/Acetaminophen (Percocet 5/325) 1 tab PO Q6H PRN PRN Reason: Pain, Moderate (4-6) Ranolazine (Ranexa Er) 500 mg PO BID [facility] Last Admin: 05/07/19 10:57 Dose: 500 mg Documented by: Sodium Chloride (Sodium Chloride Flush Syringe 10 Ml) 10 ml IV BID [facility] Last Admin: 05/07/19 11:00 Dose: 10 ml Documented by: Sodium Chloride (Sodium Chloride Flush Syringe 10 Ml) 10 ml IV PRN PRN PRN Reason: LINE FLUSH Review of Systems Constitutional: no fever, no chills Eyes: bilateral: blurred vision (w/o) Ears, nose, mouth and throat: no epistaxis Cardiovascular: no syncope Respiratory: no hemoptysis Gastrointestinal: no abdominal pain Genitourinary Male: no flank pain Musculoskeletal: arthritis, no frequent falls Integumentary: no rash Neurological: no seizures Psychiatric: no anxiety Endocrine: no cold intolerance, no heat intolerance Hematologic/Lymphatic: no easy bruising Allergic/Immunologic: no urticaria Physical Examination Vital Signs Pulse Resp BP 73 14 105/66 05/06/19 14:00 05/06/19 14:00 05/06/19 14:00 General appearance: no acute distress HEENT: Positive: PERRL Neck: Positive: neck supple. Negative: JVD/HJR, Bruit Cardiac: Positive: Reg Rate and Rhythm, S4. Negative: S3, Audible Murmur Lungs: Positive: clear to auscultation Neuro: Positive: Grossly Intact Abdomen: Positive: Soft. Negative: Tender Skin: Negative: Rash Musculoskeletal: other (limited range of motion right elbow) Extremities: Present: +1 Edema (pedal pulses intact) Results 05/06/19 13:59 05/06/19 13:59 Cardiac Enzymes 05/06/19 Range/Units 13:59 AST 16 (5-40) units/L Coagulation 05/06/19 Range/Units 13:59 PT 14.2 (12.2-14.9) Sec. INR 1.13 (0.87-1.13) APTT 33.3 (24.2-36.6) Sec. CBC 05/06/19 Range/Units 13:59 WBC 9.3 (4.5-11.0) K/mm3 RBC 3.91 (3.65-5.03) M/mm3 Hgb 12.1 (11.8-15.2) gm/dl Hct 34.9 L (35.5-45.6) % Plt Count 272 (140-440) K/mm3 Lymph # 1.3 (1.2-5.4) K/mm3 [place] # 0.8 (0.0-0.8) K/mm3 Eos # 0.2 (0.0-0.4) K/mm3 Baso # 0.0 (0.0-0.1) K/mm3 Comprehensive Metabolic Panel 05/06/19 Range/Units 13:59 Sodium 140 (137-145) mmol/L Potassium 4.6 (3.6-5.0) mmol/L Chloride 102.1 (98-107) mmol/L Carbon Dioxide 22 (22-30) mmol/L BUN 23 H (9-20) mg/dL Creatinine 2.0 H (0.8-1.5) mg/dL Glucose 91 (75-100) mg/dL Calcium 9.1 (8.4-10.2) mg/dL AST 16 (5-40) units/L ALT 14 (7-56) units/L Alkaline Phosphatase 93 (35-129) units/L Total Protein 7.8 (6.3-8.2) g/dL Albumin 3.9 (3.9-5) g/dL Assessment and Plan chest pain cad s/p mi,pci,cabg hx htn arthritis agree with present mgt. review echo for jan stress in am further rec to follow
--- NOTE | 2019-05-07 13:39 | XRay Report ---
RIGHT SHOULDER 3 VIEWS INDICATION / CLINICAL INFORMATION: pain right shoulder. COMPARISON: None available. FINDINGS: Generative change at the acromioclavicular joint. No acute abnormalities. Signer Name: Rolo Muir MD Signed: 05/07/2019 1:34 PM Workstation Name: [id number]
[2019-05-07] MEDS: NACL 0.9% 1000 ML 1,000 ML IV SCH (16:03)
[2019-05-07] MEDS: LASIX IV SCH (17:01)
[2019-05-08 04:46] LABS: Hematocrit 31.4 % (35.5-45.6); Hemoglobin 10.8 gm/dl (11.8-15.2); Mean Corpuscular HGB Conc 34 % (32-34); Mean Corpuscular Volume 90 fl (84-94); Platelet Count 258 K/mm3 (140-440); Red Cell Distribution Width 13.7 % (13.2-15.2)
[2019-05-08 05:12] LABS: Calcium 8.3 mg/dL (8.4-10.2)
[2019-05-08] MEDS: LASIX IV SCH (05:19)
[2019-05-08] MEDS: NACL 0.9% 1000 ML 1,000 ML IV SCH (05:19)
[2019-05-08] MEDS: DILAUDID IV PRN ×2 (07:37→18:28)
[2019-05-08] MEDS ORDERED: LEXISCAN IV ONE ×2 (08:07→08:15)
--- NOTE | 2019-05-08 10:58 | Progress Note ---
Assessment and Plan s/p mi,pci,cabg hx htn arthritis. Plan. Depending on the results of myocardial perfusion imaging studies will decide whether he needs to invasive tests or medical management. Dr. Rosario Bose. Subjective Date of service: 05/08/19 Interval history: Patient is in stress test room. His known to have myocardial perfusion imaging studies this morning. No chest pains palpitations or shortness of breath. Patient had bypass in 2016. Objective Vital Signs Temp Pulse Resp BP Pulse Ox 05/08/19 10:44 69 05/08/19 07:08 98.8 F 69 18 100 05/08/19 07:07 98.8 F 70 18 105/70 100 05/08/19 04:16 98.1 F 66 18 126/75 97 05/08/19 02:54 62 05/08/19 00:11 98.4 F 63 18 118/73 96 05/07/19 22:52 20 05/07/19 19:38 98.2 F 72 18 125/77 96 05/07/19 16:17 65 18 95 05/07/19 11:06 74 136/90 05/07/19 10:59 74 136/90 - Physical Examination HEENT: Positive: PERRL Neck: Positive: neck supple. Negative: JVD/HJR, Bruit Neuro: Positive: Grossly Intact Abdomen: Positive: Soft. Negative: Tender Skin: Negative: Rash Musculoskeletal: other (limited range of motion right elbow) Extremities: Present: +1 Edema (pedal pulses intact) - Labs and Meds CBC 05/08/19 Range/Units 04:03 WBC 9.7 (4.5-11.0) K/mm3 RBC 3.50 L (3.65-5.03) M/mm3 Hgb 10.8 L (11.8-15.2) gm/dl Hct 31.4 L (35.5-45.6) % Plt Count 258 (140-440) K/mm3 Comprehensive Metabolic Panel 05/08/19 Range/Units 04:03 Sodium 141 (137-145) mmol/L Potassium 4.5 (3.6-5.0) mmol/L Chloride 104.5 (98-107) mmol/L Carbon Dioxide 23 (22-30) mmol/L BUN 28 H (9-20) mg/dL Creatinine 2.2 H (0.8-1.5) mg/dL Glucose 97 (75-100) mg/dL Calcium 8.3 L (8.4-10.2) mg/dL - Imaging and Cardiology EKG: report reviewed
[2019-05-08] MEDS: ZYLOPRIM PO SCH (11:49)
[2019-05-08] MEDS: RANEXA ER PO SCH ×2 (11:49→21:26)
[2019-05-08] MEDS: HALFPRIN EC PO SCH (11:49)
[2019-05-08] MEDS: celeXA PO SCH (11:50)
[2019-05-08] MEDS: PLAVIX PO SCH (11:51)
[2019-05-08] MEDS: LOPRESSOR PO SCH ×2 (11:51→21:27)
[2019-05-08] MEDS: IMDUR PO SCH (11:52)
[2019-05-08] MEDS: SODIUM CHLORIDE FLUSH SYRINGE 10 ML IV SCH ×2 (11:56→21:27)
[2019-05-08] MEDS: NORVASC PO SCH (11:57)
--- NOTE | 2019-05-08 12:04 | Progress Note ---
Assessment and Plan Assessment and plan: Chest pain Admitted to Tele cardiology following Stress test done, report pending Acute on chronic CHF continue Lasix iv Lopressor CAD s/p CABG s/p PCI cont Plavix, imdur, Lopressor Cardiology following HTN Monitor BP Morbid obesity I counseled her on diet and exercise Pain right shoulder Xray Shoulder show arthritis he has history of arthritis both shoulders history of Arthritis Full code status History Interval history: Chest pain syubsided leg swelling Right shoulder pain with difficultly lifting RUE because of pain Hospitalist Physical - Physical exam Narrative exam: Gen: Not in acute distress, lying in bed, morbidly obese HEENT: Normocephalic, atraumatic Neck: supple, no JVD Heart: S1 and S2 reg, no murmurs, rubs or gallop Lungs: Bilateral basal crackles, no rhonchi Abd: soft, non tender, non distended, normal BS, Ext: Tender right shoulder, Bilat leg edema, no clubbing, no cyanosis Neuro: Awake,alert, Oriented X 3. No focal neurological signs Psych: normal mood - Constitutional Vitals: Temp Pulse Resp BP Pulse Ox 98.8 F 70 18 131/70 100 05/08/19 07:08 05/08/19 11:57 05/08/19 07:08 05/08/19 11:57 05/08/19 07:08 General appearance: Present: no acute distress Results - Labs CBC & Chem 7: 05/08/19 04:03 05/08/19 04:03 Labs: Laboratory Last Values WBC 9.7 K/mm3 (4.5-11.0) 05/08/19 04:03 RBC 3.50 M/mm3 (3.65-5.03) L 05/08/19 04:03 Hgb 10.8 gm/dl (11.8-15.2) L 05/08/19 04:03 Hct 31.4 % (35.5-45.6) L 05/08/19 04:03 MCV 90 fl (84-94) 05/08/19 04:03 MCH 31 pg (28-32) 05/08/19 04:03 MCHC 34 % (32-34) 05/08/19 04:03 RDW 13.7 % (13.2-15.2) 05/08/19 04:03 Plt Count 258 K/mm3 (140-440) 05/08/19 04:03 Lymph % (Auto) 14.5 % (13.4-35.0) 05/06/19 13:59 [place] % (Auto) 8.6 % (0.0-7.3) H 05/06/19 13:59 Eos % (Auto) 2.2 % (0.0-4.3) 05/06/19 13:59 Baso % (Auto) 0.2 % (0.0-1.8) 05/06/19 13:59 Lymph # 1.3 K/mm3 (1.2-5.4) 05/06/19 13:59 [place] # 0.8 K/mm3 (0.0-0.8) 05/06/19 13:59 Eos # 0.2 K/mm3 (0.0-0.4) 05/06/19 13:59 Baso # 0.0 K/mm3 (0.0-0.1) 05/06/19 13:59 Seg Neutrophils % 74.5 % (40.0-70.0) H 05/06/19 13:59 Seg Neutrophils # 6.9 K/mm3 (1.8-7.7) 05/06/19 13:59 PT 14.2 Sec. (12.2-14.9) 05/06/19 13:59 INR 1.13 (0.87-1.13) 05/06/19 13:59 APTT 33.3 Sec. (24.2-36.6) 05/06/19 13:59 VBG pH 7.373 (7.320-7.420) 05/06/19 15:43 Sodium 141 mmol/L (137-145) 05/08/19 04:03 Potassium 4.5 mmol/L (3.6-5.0) 05/08/19 04:03 Chloride 104.5 mmol/L (98-107) 05/08/19 04:03 Carbon Dioxide 23 mmol/L (22-30) 05/08/19 04:03 18 mmol/L 05/08/19 04:03 BUN 28 mg/dL (9-20) H 05/08/19 04:03 2.2 mg/dL (0.8-1.5) H 05/08/19 04:03 Estimated GFR 31 ml/min 05/08/19 04:03 13 % 05/08/19 04:03 Glucose 97 mg/dL (75-100) 05/08/19 04:03 Lactic Acid 1.10 mmol/L (0.7-2.0) 05/06/19 15:43 Calcium 8.3 mg/dL (8.4-10.2) L 05/08/19 04:03 0.40 mg/dL (0.1-1.2) 05/06/19 13:59 AST 16 units/L (5-40) 05/06/19 13:59 ALT 14 units/L (7-56) 05/06/19 13:59 93 units/L (35-129) 05/06/19 13:59 < 0.010 ng/mL (0.00-0.029) 05/06/19 20:23 NT-Pro-B Natriuret Pep 560.1 pg/mL (0-900) 05/06/19 13:59 7.8 g/dL (6.3-8.2) 05/06/19 13:59 3.9 g/dL (3.9-5) 05/06/19 13:59 1.0 % 05/06/19 13:59 Yellow (Yellow) 05/06/19 16:00 Clear (Clear) 05/06/19 16:00 5.0 (5.0-7.0) 05/06/19 16:00 Ur Specific [place] 1.015 (1.003-1.030) 05/06/19 16:00 100 mg/dl mg/dL (Negative) 05/06/19 16:00 Neg mg/dL (Negative) 05/06/19 16:00 Neg mg/dL (Negative) 05/06/19 16:00 Neg (Negative) 05/06/19 16:00 Neg (Negative) 05/06/19 16:00 Neg (Negative) 05/06/19 16:00 < 2.0 mg/dL (<2.0) 05/06/19 16:00 Ur Leukocyte Esterase Neg (Negative) 05/06/19 16:00 < 1.0 /HPF (0.0-6.0) 05/06/19 16:00 3.0 /HPF (0.0-6.0) 05/06/19 16:00 U Epithel Cells (Auto) < 1.0 /HPF (0-13.0) 05/06/19 16:00 Few /HPF 05/06/19 16:00 Active Medications - Current Medications Current Medications: Generic Name Dose Route Start Last Admin Trade Name Freq PRN Reason Stop Dose Admin Acetaminophen 650 mg 05/06/19 21:14 05/07/19 11:01 Tylenol PO 650 mg Q4H PRN Administration Pain MILD(1-3)/Fever >100.5/MISHRA Allopurinol 150 mg 05/06/19 22:00 05/08/19 11:49 Zyloprim PO 150 mg DAILY PARRIS Administration Amlodipine Besylate 10 mg 05/06/19 22:00 05/08/19 11:57 Norvasc PO 10 mg DAILY PARRIS Administration Aspirin 81 mg 05/06/19 22:00 05/08/19 11:49 Halfprin Ec PO 81 mg DAILY PARRIS Administration Citalopram Hydrobromide 30 mg 05/06/19 22:00 05/08/19 11:50 Celexa PO 30 mg DAILY PARRIS Administration Clopidogrel Bisulfate 75 mg 05/06/19 22:00 05/08/19 11:51 Plavix PO 75 mg DAILY PARRIS Administration Furosemide 40 mg 05/07/19 18:00 05/08/19 05:19 Lasix IV 40 mg 0600,1800 PARRIS Administration Hydromorphone HCl 0.5 mg 05/06/19 21:14 05/08/19 07:37 Dilaudid IV 0.5 mg Q3H PRN Administration Pain , Severe (7-10) Isosorbide Mononitrate 120 mg 05/06/19 22:00 05/08/19 11:52 Imdur PO 120 mg QDAY P[facility]IS Administration Metoprolol Tartrate 100 mg 05/06/19 22:00 05/08/19 11:51 Lopressor PO 100 mg BID PARRIS Administration Ondansetron HCl 4 mg 05/06/19 21:14 Zofran IV Q8H PRN Nausea And Vomiting Oxycodone/Acetaminophen 1 tab 05/06/19 21:14 Percocet 5/325 PO Q6H PRN Pain, Moderate (4-6) Ranolazine 500 mg 05/07/19 00:30 05/08/19 11:49 Ranexa Er PO 500 mg BID PARRIS Administration Sodium Chloride 10 ml 05/06/19 22:00 05/08/19 11:56 Sodium Chloride Flush Syringe 10 Ml IV 10 ml BID PARRIS Administration Sodium Chloride 10 ml 05/06/19 21:14 Sodium Chloride Flush Syringe 10 Ml IV PRN PRN LINE FLUSH
--- NOTE | 2019-05-08 14:02 | Consultation ---
History of Present Illness - Reason for Consult Consult date: 05/08/19 acute renal failure, chronic renal failure - History of Present Illness The patient is a 59 YO male with history significant for Morbid Obesity, Hypertension, HLP, CAD, s/p CABG x4 (11/2012), multiple PCI (most recent 04/2016 VIJAY of the SVG-RCA), chronic angina / chest pain, JANIS, CKD stage 3, Proteinuria, PTSD and Anxiety who presented to [facility] with c/o edema and chest pain. He reports L sided cp, which was intermittent, exertional, sharp and similar to previous angina. He denies any palpitations, N, V, D, abd pain, diaphoresis, dizziness, dysuria, hematuria or syncope. Patient is known to have CKD stage 3 with baseline creatinine around 1.8. Patient does not currently follow with a Maintenance Mgr. Past History Past Medical History: arthritis, CAD, heart failure, hypertension, hyperlipidemia, renal failure Past Surgical History: CABG, Other (pci) Social history: denies: smoking, alcohol abuse Medications and Allergies Allergies Allergy/AdvReac Type Severity Reaction Status Date / Time promethazine [From Phenergan] Allergy Nausea Verified 05/06/19 18:16 tramadol Allergy Unknown Verified 05/06/19 18:16 Home Medications Medication Instructions Recorded Confirmed Last Taken Type Allopurinol 150 mg PO DAILY 01/22/17 05/06/19 05/11/17 History Amlodipine Besylate 10 mg PO DAILY 01/22/17 05/06/19 05/11/17 History Aspirin [Aspirin EC] 81 mg PO DAILY 01/22/17 05/06/19 05/11/17 History Citalopram Hydrobromide 30 mg PO DAILY 01/22/17 05/06/19 05/11/17 History [Citalopram HBr] Clopidogrel Bisulfate [Plavix] 75 mg PO DAILY 01/22/17 05/06/19 05/11/17 History ISOSORBIDE MONOnitrate [Imdur ER] 120 mg PO QDAY 01/22/17 05/06/19 05/11/17 History Metoprolol Tartrate 100 mg PO BID 01/22/17 05/06/19 05/11/17 History Losartan [Cozaar] 50 mg PO QDAY 05/06/19 05/06/19 Unknown History Ranolazine [Ranexa] 500 mg PO BID 05/06/19 05/06/19 Unknown History Active Meds: Active Medications Acetaminophen (Tylenol) 650 mg PO Q4H PRN PRN Reason: Pain MILD(1-3)/Fever >100.5/MISHRA Last Admin: 05/07/19 11:01 Dose: 650 mg Documented by: Allopurinol (Zyloprim) 150 mg PO DAILY [facility] Last Admin: 05/08/19 11:49 Dose: 150 mg Documented by: Amlodipine Besylate (Norvasc) 10 mg PO DAILY [facility] Last Admin: 05/08/19 11:57 Dose: 10 mg Documented by: Aspirin (Halfprin Ec) 81 mg PO DAILY [facility] Last Admin: 05/08/19 11:49 Dose: 81 mg Documented by: Citalopram Hydrobromide (Celexa) 30 mg PO DAILY [facility] Last Admin: 05/08/19 11:50 Dose: 30 mg Documented by: Clopidogrel Bisulfate (Plavix) 75 mg PO DAILY [facility] Last Admin: 05/08/19 11:51 Dose: 75 mg Documented by: Hydromorphone HCl (Dilaudid) 0.5 mg IV Q3H PRN PRN Reason: Pain , Severe (7-10) Last Admin: 05/08/19 07:37 Dose: 0.5 mg Documented by: Isosorbide Mononitrate (Imdur) 120 mg PO QDAY [facility] Last Admin: 05/08/19 11:52 Dose: 120 mg Documented by: Metoprolol Tartrate (Lopressor) 100 mg PO BID [facility] Last Admin: 05/08/19 11:51 Dose: 100 mg Documented by: Ondansetron HCl (Zofran) 4 mg IV Q8H PRN PRN Reason: Nausea And Vomiting Oxycodone/Acetaminophen (Percocet 5/325) 1 tab PO Q6H PRN PRN Reason: Pain, Moderate (4-6) Ranolazine (Ranexa Er) 500 mg PO BID [facility] Last Admin: 05/08/19 11:49 Dose: 500 mg Documented by: Sodium Chloride (Sodium Chloride Flush Syringe 10 Ml) 10 ml IV BID [facility] Last Admin: 05/08/19 11:56 Dose: 10 ml Documented by: Sodium Chloride (Sodium Chloride Flush Syringe 10 Ml) 10 ml IV PRN PRN PRN Reason: LINE FLUSH Review of Systems Constitutional: weight gain, no weight loss, no fever, no chills, no anorexia, no fatigue, no weakness, no poor appetite Cardiovascular: chest pain, edema, shortness of breath, dyspnea on exertion, high blood pressure, leg edema, decreased exercise tolerance, no orthopnea, no syncope, no lightheadedness Respiratory: dyspnea on exertion, no cough, no home oxygen Gastrointestinal: no abdominal pain, no nausea, no vomiting, no diarrhea, no hematemesis, no melena Genitourinary Male: no dysuria, no hematuria Integumentary: no rash, no sores, no wounds, no jaundice Neurological: no paralysis, no weakness, no seizures, no syncope, no change in speech, no change in mentation, no confusion, no memory loss Exam - Vital Signs Vital signs: Vital Signs Pulse Resp BP 73 14 105/66 05/06/19 14:00 05/06/19 14:00 05/06/19 14:00 - General Appearance General appearance: well-developed, well-nourished, appears stated age, obese, other (no distress) EENT: ATNC, PERRL, mucous membranes moist, hearing intact, vision intact Neck: Present: neck supple, trachea midline Respiratory: Clear to Ascultation Heart: regular, S1S2, no murmurs Gastrointestinal: Present: normoactive bowel sounds, obese. Absent: tenderness, distended Integumentary: no rash, warm and dry Neurologic: no focal deficit, no asterixis, alert and oriented x3 Musculoskeletal: Present: other (no edema) Results - Lab Results 05/08/19 04:03 05/08/19 04:03 Most recent lab results Calcium 8.3 mg/dL (8.4-10.2) L 05/08/19 04:03 Assessment and Plan 1. Acute kidney injury: Vasomotor MYA superimposed on CKD stage 3. Due to increasing creatinine level will stop / hold diuretics. Urine studies. Monitor renal function. Avoid nephrotoxic agents. Meds dosage base don GFR. 2. FEN: Monitor lytes and volume status. 3. Chest pain: H/o CAD. Followed by Cards. 4. Hypertension. 5. Morbid obesity due to excess calories.
--- NOTE | 2019-05-08 23:39 | Treadmill Report ---
MYOCARDIAL PERFUSION IMAGING STUDIES Resting images revealed a mildly diminished radioisotope activity in the inferior and the lateral wall. On post-Lexiscan, perfusion images showed slightly better uptake in inferolateral region of the ventricle compared to the resting images. Gated scan revealed no segmental motion abnormality. Ejection fraction was noted to be 59%. IMPRESSION: Findings suggest inferolateral wall scar without ischemia. Ejection fraction is 59%. [facility]# [id number] WILLIE/SUJATHA
[2019-05-09 05:20] LABS: Calcium 8.6 mg/dL (8.4-10.2)
[2019-05-09] MEDS: TYLENOL PO PRN (07:29)
[2019-05-09] MEDS: PLAVIX PO SCH (10:23)
[2019-05-09] MEDS: IMDUR PO SCH (10:23)
[2019-05-09] MEDS: RANEXA ER PO SCH ×2 (10:23→21:01)
[2019-05-09] MEDS: ZYLOPRIM PO SCH (10:24)
[2019-05-09] MEDS: celeXA PO SCH (10:25)
[2019-05-09] MEDS: HALFPRIN EC PO SCH (10:34)
[2019-05-09] MEDS: LOPRESSOR PO SCH ×2 (10:34→21:01)
[2019-05-09] MEDS: NORVASC PO SCH (10:38)
[2019-05-09] MEDS: SODIUM CHLORIDE FLUSH SYRINGE 10 ML IV SCH ×2 (10:39→21:01)
--- NOTE | 2019-05-09 12:59 | Progress Note ---
Assessment and Plan Assessment and plan: Chest pain. Etiology likely costochondritis. Stress test reveals inferolateral wall scar without ischemia. Continue Ranexa Acute on chronic CHF, resolving continue Lasix iv Lopressor Acute gouty arthritis. Continue colchicine. Patient is refusing steroids at this time. CAD s/p CABG s/p PCI cont Plavix, imdur, Lopressor Cardiology following HTN Monitor BP Morbid obesity I counseled her on diet and exercise Pain right shoulder Xray Shoulder show arthritis he has history of arthritis both shoulders history of Arthritis Full code status Disposition. Anticipate discharge in a.m. History Interval history: No new Issues overnight. Patient complains of joint pain in his shoulder and hand related to gout Hospitalist Physical - Constitutional Vitals: Temp Pulse Resp BP Pulse Ox 98.1 F 75 18 126/71 96 05/09/19 08:22 05/09/19 10:38 05/09/19 08:25 05/09/19 10:38 05/09/19 08:22 General appearance: Present: no acute distress - EENT Eyes: Present: PERRL, EOM intact ENT: hearing intact, clear oral mucosa, dentition normal - Neck Neck: Present: supple, normal ROM - Respiratory Respiratory effort: normal Respiratory: bilateral: CTA - Cardiovascular Rhythm: regular Heart Sounds: Present: S1 & S2. Absent: gallop, rub - Extremities Extremities: no ischemia, No edema, Full ROM - Abdominal General gastrointestinal: soft, non-tender, non-distended, normal bowel sounds - Integumentary Integumentary: Present: clear, warm, dry - Neurologic Neurologic: CNII-XII intact, moves all extremities Results - Labs CBC & Chem 7: 05/08/19 04:03 05/09/19 04:20 Labs: Laboratory Last Values WBC 9.7 K/mm3 (4.5-11.0) 05/08/19 04:03 RBC 3.50 M/mm3 (3.65-5.03) L 05/08/19 04:03 Hgb 10.8 gm/dl (11.8-15.2) L 05/08/19 04:03 Hct 31.4 % (35.5-45.6) L 05/08/19 04:03 MCV 90 fl (84-94) 05/08/19 04:03 MCH 31 pg (28-32) 05/08/19 04:03 MCHC 34 % (32-34) 05/08/19 04:03 RDW 13.7 % (13.2-15.2) 05/08/19 04:03 Plt Count 258 K/mm3 (140-440) 05/08/19 04:03 Lymph % (Auto) 14.5 % (13.4-35.0) 05/06/19 13:59 [place] % (Auto) 8.6 % (0.0-7.3) H 05/06/19 13:59 Eos % (Auto) 2.2 % (0.0-4.3) 05/06/19 13:59 Baso % (Auto) 0.2 % (0.0-1.8) 05/06/19 13:59 Lymph # 1.3 K/mm3 (1.2-5.4) 05/06/19 13:59 [place] # 0.8 K/mm3 (0.0-0.8) 05/06/19 13:59 Eos # 0.2 K/mm3 (0.0-0.4) 05/06/19 13:59 Baso # 0.0 K/mm3 (0.0-0.1) 05/06/19 13:59 Seg Neutrophils % 74.5 % (40.0-70.0) H 05/06/19 13:59 Seg Neutrophils # 6.9 K/mm3 (1.8-7.7) 05/06/19 13:59 PT 14.2 Sec. (12.2-14.9) 05/06/19 13:59 INR 1.13 (0.87-1.13) 05/06/19 13:59 APTT 33.3 Sec. (24.2-36.6) 05/06/19 13:59 VBG pH 7.373 (7.320-7.420) 05/06/19 15:43 Sodium 138 mmol/L (137-145) 05/09/19 04:20 Potassium 4.1 mmol/L (3.6-5.0) 05/09/19 04:20 Chloride 101.6 mmol/L (98-107) 05/09/19 04:20 Carbon Dioxide 24 mmol/L (22-30) 05/09/19 04:20 17 mmol/L 05/09/19 04:20 BUN 27 mg/dL (9-20) H 05/09/19 04:20 2.0 mg/dL (0.8-1.5) H 05/09/19 04:20 Estimated GFR 35 ml/min 05/09/19 04:20 14 % 05/09/19 04:20 Glucose 102 mg/dL (75-100) H 05/09/19 04:20 Lactic Acid 1.10 mmol/L (0.7-2.0) 05/06/19 15:43 Calcium 8.6 mg/dL (8.4-10.2) 05/09/19 04:20 Magnesium 2.30 mg/dL (1.7-2.3) 05/09/19 04:20 0.40 mg/dL (0.1-1.2) 05/06/19 13:59 AST 16 units/L (5-40) 05/06/19 13:59 ALT 14 units/L (7-56) 05/06/19 13:59 93 units/L (35-129) 05/06/19 13:59 < 0.010 ng/mL (0.00-0.029) 05/06/19 20:23 NT-Pro-B Natriuret Pep 560.1 pg/mL (0-900) 05/06/19 13:59 7.8 g/dL (6.3-8.2) 05/06/19 13:59 3.9 g/dL (3.9-5) 05/06/19 13:59 1.0 % 05/06/19 13:59 Yellow (Yellow) 05/06/19 16:00 Clear (Clear) 05/06/19 16:00 5.0 (5.0-7.0) 05/06/19 16:00 Ur Specific [place] 1.015 (1.003-1.030) 05/06/19 16:00 100 mg/dl mg/dL (Negative) 05/06/19 16:00 Neg mg/dL (Negative) 05/06/19 16:00 Neg mg/dL (Negative) 05/06/19 16:00 Neg (Negative) 05/06/19 16:00 Neg (Negative) 05/06/19 16:00 Neg (Negative) 05/06/19 16:00 < 2.0 mg/dL (<2.0) 05/06/19 16:00 Ur Leukocyte Esterase Neg (Negative) 05/06/19 16:00 < 1.0 /HPF (0.0-6.0) 05/06/19 16:00 3.0 /HPF (0.0-6.0) 05/06/19 16:00 U Epithel Cells (Auto) < 1.0 /HPF (0-13.0) 05/06/19 16:00 Few /HPF 05/06/19 16:00 Active Medications - Current Medications Current Medications: Generic Name Dose Route Start Last Admin Trade Name Freq PRN Reason Stop Dose Admin Acetaminophen 650 mg 05/06/19 21:14 05/09/19 07:29 Tylenol PO 650 mg Q4H PRN Administration Pain MILD(1-3)/Fever >100.5/MISHRA Allopurinol 150 mg 05/06/19 22:00 05/09/19 10:24 Zyloprim PO 150 mg DAILY PARRIS Administration Amlodipine Besylate 10 mg 05/06/19 22:00 05/09/19 10:38 Norvasc PO 10 mg DAILY PARRIS Administration Aspirin 81 mg 05/06/19 22:00 05/09/19 10:34 Halfprin Ec PO 81 mg DAILY PARRIS Administration Citalopram Hydrobromide 30 mg 05/06/19 22:00 05/09/19 10:25 Celexa PO 30 mg DAILY PARRIS Administration Clopidogrel Bisulfate 75 mg 05/06/19 22:00 05/09/19 10:23 Plavix PO 75 mg DAILY PARRIS Administration Hydromorphone HCl 0.5 mg 05/06/19 21:14 05/08/19 18:28 Dilaudid IV 0.5 mg Q3H PRN Administration Pain , Severe (7-10) Isosorbide Mononitrate 120 mg 05/06/19 22:00 05/09/19 10:23 Imdur PO 120 mg QDAY PARRIS Administration Metoprolol Tartrate 100 mg 05/06/19 22:00 05/09/19 10:34 Lopressor PO 100 mg BID PARRIS Administration Ondansetron HCl 4 mg 05/06/19 21:14 Zofran IV Q8H PRN Nausea And Vomiting Oxycodone/Acetaminophen 1 tab 05/06/19 21:14 05/09/19 00:29 Percocet 5/325 PO 1 tab Q6H PRN Administration Pain, Moderate (4-6) Ranolazine 500 mg 05/07/19 00:30 05/09/19 10:23 Ranexa Er PO 500 mg BID PARRIS Administration Sodium Chloride 10 ml 05/06/19 22:00 05/09/19 10:39 Sodium Chloride Flush Syringe 10 Ml IV 10 ml BID PARRIS Administration Sodium Chloride 10 ml 05/06/19 21:14 Sodium Chloride Flush Syringe 10 Ml IV PRN PRN LINE FLUSH
--- NOTE | 2019-05-09 13:19 | Progress Note ---
Assessment and Plan 1. Acute kidney injury: Vasomotor MYA superimposed on CKD stage 3. Creatinine level is better today. Urine studies. Monitor renal function. Avoid nephrotoxic agents. Meds dosage base don GFR. 2. FEN: Monitor lytes and volume status. 3. Chest pain: H/o CAD. Followed by Cards. 4. Hypertension. 5. Morbid obesity due to excess calories. Subjective Date of service: 05/09/19 Interval history: Patient was seen and examined at the bedside. Doing ok. Objective - Vital Signs Vital signs: Vital Signs - 12hr 05/09/19 05/09/19 05/09/19 03:00 04:16 08:22 Temperature 98.8 F 98.1 F Pulse Rate 73 72 75 Respiratory 18 18 Rate Blood Pressure 118/76 126/71 O2 Sat by Pulse 93 96 Oximetry 05/09/19 05/09/19 05/09/19 08:25 10:23 10:34 Temperature Pulse Rate 75 75 Respiratory 18 Rate Blood Pressure 126/71 126/71 O2 Sat by Pulse Oximetry 05/09/19 10:38 Temperature Pulse Rate 75 Respiratory Rate Blood Pressure 126/71 O2 Sat by Pulse Oximetry - General Appearance General appearance: well-developed, well-nourished, appears stated age, obese, other (no distress) EENT: ATNC, PERRL, mucous membranes moist, hearing intact, vision intact Neck: supple Respiratory: Present: Clear to Ascultation Cardiology: regular, S1S2, no murmurs Gastrointestinal: normoactive bowel sounds, no tenderness, no distended Integumentary: no rash, warm and dry Neurologic: no focal deficit, no asterixis, alert and oriented x3 Musculoskeletal: other (no edema) - Lab 05/08/19 04:03 05/09/19 04:20 Most recent lab results Calcium 8.6 mg/dL (8.4-10.2) 05/09/19 04:20 Magnesium 2.30 mg/dL (1.7-2.3) 05/09/19 04:20 Medications & Allergies - Medications Allergies/Adverse Reactions: Allergies promethazine [From Phenergan] Allergy (Verified 05/06/19 18:16) Nausea tramadol Allergy (Verified 05/06/19 18:16) Unknown Home Medications: Home Medications Medication Instructions Recorded Confirmed Last Taken Type Allopurinol 150 mg PO DAILY 01/22/17 05/06/19 05/11/17 History Amlodipine Besylate 10 mg PO DAILY 01/22/17 05/06/19 05/11/17 History Aspirin [Aspirin EC] 81 mg PO DAILY 01/22/17 05/06/19 05/11/17 History Citalopram Hydrobromide 30 mg PO DAILY 01/22/17 05/06/19 05/11/17 History [Citalopram HBr] Clopidogrel Bisulfate [Plavix] 75 mg PO DAILY 01/22/17 05/06/19 05/11/17 History ISOSORBIDE MONOnitrate [Imdur ER] 120 mg PO QDAY 01/22/17 05/06/19 05/11/17 History Metoprolol Tartrate 100 mg PO BID 01/22/17 05/06/19 05/11/17 History Losartan [Cozaar] 50 mg PO QDAY 05/06/19 05/06/19 Unknown History Ranolazine [Ranexa] 500 mg PO BID 05/06/19 05/06/19 Unknown History Active Medications: Generic Name Dose Route Start Last Admin Trade Name Freq PRN Reason Stop Dose Admin Acetaminophen 650 mg 05/06/19 21:14 05/09/19 07:29 Tylenol PO 650 mg Q4H PRN Administration Pain MILD(1-3)/Fever >100.5/MISHRA Allopurinol 150 mg 05/06/19 22:00 05/09/19 10:24 Zyloprim PO 150 mg DAILY PARRIS Administration Amlodipine Besylate 10 mg 05/06/19 22:00 05/09/19 10:38 Norvasc PO 10 mg DAILY PARRIS Administration Aspirin 81 mg 05/06/19 22:00 05/09/19 10:34 Halfprin Ec PO 81 mg DAILY PARRIS Administration Citalopram Hydrobromide 30 mg 05/06/19 22:00 05/09/19 10:25 Celexa PO 30 mg DAILY PARRIS Administration Clopidogrel Bisulfate 75 mg 05/06/19 22:00 05/09/19 10:23 Plavix PO 75 mg DAILY PARRIS Administration Colchicine 0.6 mg 05/09/19 22:00 Colchicine PO BID PARRIS Hydromorphone HCl 0.5 mg 05/06/19 21:14 05/08/19 18:28 Dilaudid IV 0.5 mg Q3H PRN Administration Pain , Severe (7-10) Isosorbide Mononitrate 120 mg 05/06/19 22:00 05/09/19 10:23 Imdur PO 120 mg QDAY PARRIS Administration Metoprolol Tartrate 100 mg 05/06/19 22:00 05/09/19 10:34 Lopressor PO 100 mg BID PARRIS Administration Ondansetron HCl 4 mg 05/06/19 21:14 Zofran IV Q8H PRN Nausea And Vomiting Oxycodone/Acetaminophen 1 tab 05/06/19 21:14 05/09/19 00:29 Percocet 5/325 PO 1 tab Q6H PRN Administration Pain, Moderate (4-6) Ranolazine 500 mg 05/07/19 00:30 05/09/19 10:23 Ranexa Er PO 500 mg BID PARRIS Administration Sodium Chloride 10 ml 05/06/19 22:00 05/09/19 10:39 Sodium Chloride Flush Syringe 10 Ml IV 10 ml BID PARRIS Administration Sodium Chloride 10 ml 05/06/19 21:14 Sodium Chloride Flush Syringe 10 Ml IV PRN PRN LINE FLUSH
[2019-05-09] MEDS: COLCHICINE PO SCH (21:02)
[2019-05-10 03:21] LABS: Creatinine,Urine 151.5 mg/dL (0.1-20.0); Protein/Creatinine Ratio,Urine 0.34
[2019-05-10 06:38] LABS: Calcium 8.6 mg/dL (8.4-10.2)
--- NOTE | 2019-05-10 07:11 | Discharge Summary ---
Providers - Providers Date of Admission: 05/06/19 15:47 Date of discharge: 05/10/19 Attending physician: DOUG DUMAS 05/06/19 15:46 Consult to Physician [CONS] Urgent Comment: Consulting Provider: JOHNNY BAEZ Physician Instructions: Reason For Exam: cp, hx of cad/cabg x4/stent x 8, edema 05/08/19 07:40 Consult to Physician [CONS] Routine Comment: Consulting Provider: SONIA TOMPKINS Physician Instructions: Reason For Exam: Acute on CKD Primary care physician: SEBAS BUSH Hospitalization Reason for admission: cp Condition: Stable Hospital course: 59 yo male known to our service with PMH htn, chf, cad s/p pci (most recent 2015) and cabg (2012) with a hx of stable angina who presented to [facility] with an increase in frequency of chest tightness, worse than the stable pattern and similar to symptoms he had in the past associated with myocardial infarction and prior coronary revascularization. He also has multiple rheum complaints involving his arms and legs. He also c/o increasing sob and lower extremity swelling. He has a hx of sleep apnea and uses cpap. He denied palpitations or syncope. The ecg reveals sinus rhythm, old inf mi, no acute changes. trop neg x2. cr 2.0. The patient was seen by cardiology and nephrology in consultation. Patient underwent Lexiscan which revealed inferolateral wall scar without ischemia. Cardiology had no further recommendations for intervention. The patient had acute on chronic CHF resolved with IV Lasix. Etiology of chest pain was likely costochondritis. Patient had multiple joint complaints that were likely related to his gout from acute gouty arthritis. Patient refused steroids and was treated with colchicine. Patient has slight elevation in creatinine from his baseline of 1.8 pounds attributed to vasomotor nephropathy from acute kidney injury superimposed on CKD stage III. Nephrology had no further recommendation s. Patient is felt to have received maximal hospital benefit and will be discharged home. Dedicated discharged time 32 minutes. Disposition: -01 TO HOME OR SELFCARE Time spent for discharge: 32 - Discharge Diagnoses (1) Costochondral chest pain Status: Acute (2) Acute exacerbation of CHF (congestive heart failure) Status: Acute Qualifiers: Heart failure type: combined systolic and diastolic Qualified Code(s): I50.43 - Acute on chronic combined systolic (congestive) and diastolic (congestive) heart failure (3) Chest pain Status: Acute (4) Peripheral edema Status: Acute (5) Renal insufficiency Status: Chronic (6) Coronary artery disease Status: Chronic Qualifiers: Coronary Disease-Associated Artery/Lesion type: [place] artery Associated angina: with unspecified angina (7) Dyslipidemia Status: Chronic (8) Hypertension Status: Chronic Qualifiers: Hypertension type: essential hypertension Qualified Code(s): I10 - Essential (primary) hypertension (9) Gout Status: Inactive Qualifiers: Gout site: unspecified site Presence of tophus: without tophus Core Measure Documentation - Palliative Care Palliative Care/ Comfort Measures: Not Applicable - Core Measures Any of the following diagnoses?: heart failure - Heart Failure Discharge Requirements LEON/ARB for LVSD if EF <40%: No Reason for no LEON/ARB: Renal impairment Beta subhash at discharge: Yes Exam - Constitutional Vitals: Temp Pulse Resp BP Pulse Ox 98.6 F 71 20 120/72 95 05/10/19 03:47 05/10/19 03:47 05/10/19 03:47 05/10/19 03:47 05/10/19 03:47 General appearance: Present: no acute distress, well-nourished - EENT Eyes: Present: PERRL ENT: hearing intact, clear oral mucosa - Neck Neck: Present: supple, normal ROM - Respiratory Respiratory effort: normal Respiratory: bilateral: CTA - Cardiovascular Heart Sounds: Present: S1 & S2. Absent: rub, click - Extremities Extremities: pulses symmetrical, No edema Peripheral Pulses: within normal limits - Abdominal General gastrointestinal: Present: soft, non-tender, non-distended, normal bowel sounds Male genitourinary: Present: normal - Integumentary Integumentary: Present: clear, warm, dry - Musculoskeletal Musculoskeletal: gait normal, strength equal bilaterally - Psychiatric Psychiatric: appropriate mood/affect, intact judgment & insight - Neurologic Neurologic: CNII-XII intact, moves all extremities Plan Activity: advance as tolerated Weight Bearing Status: Weight Bear as Tolerated Diet: low fat, low cholesterol, low salt Follow up with: SEBAS BUSH MD [Primary Care Provider] - 7 Days JOHNNY BAEZ MD [Staff Physician] - 7 Days SONIA TOMPKINS MD [Staff Physician] - 7 Days Prescriptions: Citalopram [Celexa] 30 mg PO DAILY #30 tablet Colchicine 0.6 mg PO BID #12 capsule Losartan [Cozaar] 50 mg PO QDAY #30 tablet Aspirin EC [Halfprin EC] 81 mg PO DAILY #30 tablet ISOSORBIDE MONOnitrate [Imdur ER] 120 mg PO QDAY #30 tablet Metoprolol [Lopressor TAB] 100 mg PO BID #60 tablet amLODIPine [Norvasc] 10 mg PO DAILY #30 tablet oxyCODONE /ACETAMINOPHEN [Percocet 5/325 mg] 1 tab PO Q6H PRN #10 tablet PRN Reason: Pain, Moderate (4-6) Clopidogrel [Plavix] 75 mg PO DAILY #30 tablet Ranolazine [Ranexa] 500 mg PO BID #60 tab.er.12h
[2019-05-10 08:25] VITALS: BP 133/86
[2019-05-10] MEDS: HALFPRIN EC PO SCH (09:15)
[2019-05-10] MEDS: RANEXA ER PO SCH (09:15)
[2019-05-10] MEDS: PLAVIX PO SCH (09:15)
[2019-05-10] MEDS: LOPRESSOR PO SCH (09:15)
[2019-05-10] MEDS: ZYLOPRIM PO SCH (09:16)
[2019-05-10] MEDS: IMDUR PO SCH (09:17)
[2019-05-10] MEDS: celeXA PO SCH (09:18)
[2019-05-10] MEDS: COLCHICINE PO SCH (09:18)
[2019-05-10] MEDS: SODIUM CHLORIDE FLUSH SYRINGE 10 ML IV SCH (09:20)
--- NOTE | 2019-05-10 09:23 | Progress Note ---
Assessment and Plan 1. Acute kidney injury: Vasomotor MYA superimposed on CKD stage 3. Creatinine level is better. Monitor renal function. Avoid nephrotoxic agents. Meds dosage base don GFR. 2. FEN: Monitor lytes and volume status. 3. Chest pain: H/o CAD. Followed by Cards. 4. Hypertension. 5. Morbid obesity due to excess calories. F/u with me in 1-2 weeks. Subjective Date of service: 05/10/19 Interval history: Patient was seen and examined at the bedside. Doing ok. Objective - Vital Signs Vital signs: Vital Signs - 12hr 05/09/19 05/09/19 05/10/19 22:17 23:29 03:47 Temperature 98.9 F 98.6 F Pulse Rate 82 68 71 Respiratory 20 20 Rate Blood Pressure 102/63 120/72 O2 Sat by Pulse 96 95 Oximetry 05/10/19 05/10/19 05/10/19 07:57 08:23 09:15 Temperature 99.4 F Pulse Rate 83 83 Respiratory 18 18 Rate Blood Pressure 133/86 133/86 O2 Sat by Pulse 95 Oximetry 05/10/19 09:17 Temperature Pulse Rate 83 Respiratory Rate Blood Pressure 133/86 O2 Sat by Pulse Oximetry - General Appearance General appearance: well-developed, well-nourished, appears stated age, obese, other (no distress) EENT: ATNC, PERRL, mucous membranes moist, hearing intact, vision intact Neck: supple Respiratory: Present: Clear to Ascultation Cardiology: regular, S1S2, no murmurs Gastrointestinal: normoactive bowel sounds, no tenderness, no distended, obese Integumentary: no rash, warm and dry Neurologic: no focal deficit, no asterixis, alert and oriented x3 Musculoskeletal: other (no edema) Psychiatric: cooperative - Lab 05/08/19 04:03 05/10/19 04:10 Most recent lab results Calcium 8.6 mg/dL (8.4-10.2) 05/10/19 04:10 Magnesium 2.30 mg/dL (1.7-2.3) 05/09/19 04:20 151.5 mg/dL (0.1-20.0) H 05/09/19 02:00 62 mmol/L 05/09/19 02:00 52 mg/dL (5-11.8) H 05/09/19 02:00 Medications & Allergies - Medications Allergies/Adverse Reactions: Allergies promethazine [From Phenergan] Allergy (Verified 05/06/19 18:16) Nausea tramadol Allergy (Verified 05/06/19 18:16) Unknown Home Medications: Home Medications Medication Instructions Recorded Confirmed Last Taken Type Allopurinol 150 mg PO DAILY 01/22/17 05/06/19 05/11/17 History Aspirin EC [Halfprin EC] 81 mg PO DAILY #30 tablet 05/10/19 Unknown Rx Citalopram [Celexa] 30 mg PO DAILY #30 tablet 05/10/19 Unknown Rx Clopidogrel [Plavix] 75 mg PO DAILY #30 tablet 05/10/19 Unknown Rx Colchicine 0.6 mg PO BID #12 capsule 05/10/19 Unknown Rx ISOSORBIDE MONOnitrate [Imdur ER] 120 mg PO QDAY #30 tablet 05/10/19 Unknown Rx Losartan [Cozaar] 50 mg PO QDAY #30 tablet 05/10/19 Unknown Rx Metoprolol [Lopressor TAB] 100 mg PO BID #60 tablet 05/10/19 Unknown Rx Ranolazine [Ranexa] 500 mg PO BID #60 tab.er.12h 05/10/19 Unknown Rx amLODIPine [Norvasc] 10 mg PO DAILY #30 tablet 05/10/19 Unknown Rx oxyCODONE /ACETAMINOPHEN [Percocet 1 tab PO Q6H PRN #10 tablet 05/10/19 Unknown Rx 5/325 mg] Active Medications: Generic Name Dose Route Start Last Admin Trade Name Freq PRN Reason Stop Dose Admin Acetaminophen 650 mg 05/06/19 21:14 05/09/19 07:29 Tylenol PO 650 mg Q4H PRN Administration Pain MILD(1-3)/Fever >100.5/MISHRA Allopurinol 150 mg 05/06/19 22:00 05/10/19 09:16 Zyloprim PO 150 mg DAILY PARRIS Administration Amlodipine Besylate 10 mg 05/10/19 10:00 05/10/19 09:17 Norvasc PO 10 mg DAILY PARRIS Administration Aspirin 81 mg 05/06/19 22:00 05/10/19 09:15 Halfprin Ec PO 81 mg DAILY PARRIS Administration Citalopram Hydrobromide 30 mg 05/06/19 22:00 05/10/19 09:18 Celexa PO 30 mg DAILY PARRIS Administration Clopidogrel Bisulfate 75 mg 05/06/19 22:00 05/10/19 09:15 Plavix PO 75 mg DAILY PARRIS Administration Colchicine 0.6 mg 05/09/19 22:00 05/10/19 09:18 Colchicine PO 0.6 mg BID PARRIS Administration Hydromorphone HCl 0.5 mg 05/06/19 21:14 05/08/19 18:28 Dilaudid IV 0.5 mg Q3H PRN Administration Pain , Severe (7-10) Isosorbide Mononitrate 120 mg 05/06/19 22:00 05/10/19 09:17 Imdur PO 120 mg QDAY PARRIS Administration Metoprolol Tartrate 100 mg 05/06/19 22:00 05/10/19 09:15 Lopressor PO 100 mg BID PARRIS Administration Ondansetron HCl 4 mg 05/06/19 21:14 Zofran IV Q8H PRN Nausea And Vomiting Oxycodone/Acetaminophen 1 tab 05/06/19 21:14 05/09/19 00:29 Percocet 5/325 PO 1 tab Q6H PRN Administration Pain, Moderate (4-6) Ranolazine 500 mg 05/07/19 00:30 05/10/19 09:15 Ranexa Er PO 500 mg BID PARRIS Administration Sodium Chloride 10 ml 05/06/19 22:00 05/10/19 09:20 Sodium Chloride Flush Syringe 10 Ml IV 10 ml BID PARRIS Administration Sodium Chloride 10 ml 05/06/19 21:14 Sodium Chloride Flush Syringe 10 Ml IV PRN PRN LINE FLUSH
[2019-05-10] MEDS ORDERED: NORVASC PO SCH (10:00)
== END 2019-05-10 11:30 | disposition home or self-care (01) | DRG 205 ==
LOC: ED 12:51 → 4A 15:47
PROVIDERS: ADMIT Internal Medicine; ATTEND Hospitalist
DX: M94.0 Chondrocostal junction syndrome [Tietze] (principal); N17.0 Acute kidney failure with tubular necrosis; I50.43 Acute on chronic combined systolic (congestive) and diastolic (congestive) heart failure; Z68.41 Body mass index [BMI] 40.0-44.9, adult; I25.10 Atherosclerotic heart disease of native coronary artery without angina pectoris; G47.33 Obstructive sleep apnea (adult) (pediatric); E66.01 Morbid (severe) obesity due to excess calories; M10.9 Gout, unspecified; N18.3 Chronic kidney disease, stage 3 (moderate); Z95.1 Presence of aortocoronary bypass graft; Z95.5 Presence of coronary angioplasty implant and graft; I25.2 Old myocardial infarction; Z82.49 Family history of ischemic heart disease and other diseases of the circulatory system; Z79.51 Long term (current) use of inhaled steroids; Z79.899 Other long term (current) drug therapy; Z88.8 Allergy status to other drugs, medicaments and biological substances; Z79.82 Long term (current) use of aspirin; Z71.3 Dietary counseling and surveillance
CPT/HCPCS: 36415; 71046; 78452; 80048; 80053; 81001; 82140; 82570; 82805; 83735; 83880; 84156; 84300; 84484; 84550; 85025; 85027; 85610; 85730; 87040; 87086; 93005; 93010; 93017; 93306; G0378; A9502; J1170; J1940; J2270; J2405; J2785; J7030

== ENCOUNTER 2022-02-05 13:49 | Emergency (ER) | payer OTHER ==
--- NOTE | 2022-02-05 14:16 | Event Note ---
Date: 02/05/22 Medical screening examination note: 61-year-old gentleman, presenting to the ER today with a complaint of left flank pain, suprapubic pain and urinary retention since 5:00 in the morning. Reports having had a left-sided kidney biopsy last week at the [facility], and was "doing okay", up until the morning. Denies additional complaints. Place Gill catheter for acute urinary retention, obtain appropriate laboratory studies, renal ultrasound, detailed history and physical to be performed by oncoming ER provider Discussed this plan of care with the patient and family, who articulated understanding and are agreeable Vital Signs 02/05/22 14:06 Temperature 98.9 F Pulse Rate 93 H Respiratory 20 Rate Blood Pressure 93/61 O2 Sat by Pulse 97 Oximetry
[2022-02-05] MEDS ORDERED: ONDANSETRON 4 MG/2 ML INJ IV ONE ×2 (14:36→19:22)
--- NOTE | 2022-02-05 14:36 | Emergency Department Report ---
ED General Adult HPI - General Chief complaint: Abdominal Pain Stated complaint: URINARY RETENTION Time Seen by Provider: 02/05/22 14:31 Source: patient Mode of arrival: Ambulatory Limitations: No Limitations - History of Present Illness Initial comments: Patient presents with complaints of back pain, left-sided, sharp, radiating to LLQ of abdomen in front, not worsened or relieved by anything, associated with nausea. Denies numbness including saddle anesthesia, weakness, bowel or urinary incontinence, dysuria, frequency, urgency, recent fall, trauma or heavy lifting. Has not been able to urinate x 20 hours. Has a hx of nephrolithiasis. Also had a kidney biopsy recently. - Related Data Home Medications Medication Instructions Recorded Confirmed Last Taken Allopurinol 150 mg PO DAILY 01/22/17 03/07/20 03/07/20 Citalopram [Celexa] 40 mg PO DAILY 11/23/19 03/07/20 03/04/20 10:00 Insulin NPH/Regular 10 units SUB-Q AC 11/23/19 03/07/20 03/07/20 10:00 Levemir VIAL 30 units SUB-Q HS 11/23/19 03/07/20 03/06/20 22:00 Methotrexate 20 mg PO 1XW 11/23/19 03/07/20 02/28/20 amLODIPine 10 mg PO DAILY 11/23/19 03/07/20 03/07/20 10:00 Multivit-Min/Iron/Folic Acid/K 1 tab PO DAILY 02/07/20 03/07/20 03/04/20 10:00 [Adults Multivitamin Tablet] Aspirin EC [Halfprin EC] 81 mg PO DAILY 03/07/20 03/07/20 03/07/20 10:00 Clopidogrel [Plavix] 75 mg PO DAILY 03/07/20 03/07/20 03/06/20 10:00 ISOSORBIDE MONOnitrate [Imdur ER] 120 mg PO QDAY 03/07/20 03/07/20 03/07/20 10:00 Losartan [Cozaar] 50 mg PO QDAY 03/07/20 03/07/20 03/07/20 50 mg Metoprolol [Lopressor TAB] 100 mg PO BID 03/07/20 03/07/20 03/07/20 10:00 Ranolazine [Ranexa] 1,000 mg PO BID 03/07/20 03/07/20 03/07/20 10:00 Previous Rx's Medication Instructions Recorded Last Taken Type Colchicine 0.6 mg PO BID #12 capsule 05/10/19 09/20/19 Rx Pravastatin [Pravachol] 80 mg PO QHS #30 tablet 02/09/20 02/18/19 Rx Pantoprazole [Protonix] 40 mg PO QDAY #14 tablet 03/09/20 Unknown Rx Allergies Allergy/AdvReac Type Severity Reaction Status Date / Time promethazine [From Phenergan] Allergy Nausea Verified 11/23/19 17:03 tramadol Allergy Unknown Verified 11/23/19 17:03 atorvastatin AdvReac Unknown Verified 03/07/20 18:38 ED Review of Systems ROS: Stated complaint: URINARY RETENTION Other details as noted in HPI Comment: All other systems reviewed and negative Constitutional: denies: chills, fever ED Past Medical Hx - Past Medical History Previous Medical History?: Yes Hx Hypertension: Yes Hx Heart Attack/AMI: Yes Hx Congestive Heart Failure: Yes Hx Diabetes: Yes Hx Deep Vein Thrombosis: No Hx Pulmonary Embolism: No Hx Renal Disease: Yes (Stage 3 kidney disease) Hx Arthritis: Yes Hx Kidney Stones: No Hx Asthma: No Hx COPD: No Hx Tuberculosis: No Additional medical history: aleep apnea - Surgical History Past Surgical History?: Yes Hx Coronary Stent: Yes (Reported * stents in past) Hx Open Heart Surgery: Yes (CABG x4) Hx Pacemaker: No Hx Internal Defibrillator: No - Social History Smoking Status: Never Smoker - Medications Home Medications: Home Medications Medication Instructions Recorded Confirmed Last Taken Type Allopurinol 150 mg PO DAILY 01/22/17 03/07/20 03/07/20 History Colchicine 0.6 mg PO BID #12 capsule 05/10/19 03/07/20 09/20/19 Rx Citalopram [Celexa] 40 mg PO DAILY 11/23/19 03/07/20 03/04/20 10:00 History Insulin NPH/Regular 10 units SUB-Q AC 11/23/19 03/07/20 03/07/20 10:00 History Levemir VIAL 30 units SUB-Q HS 11/23/19 03/07/20 03/06/20 22:00 History Methotrexate 20 mg PO 1XW 03/0503/07/20 02/28/20 History amLODIPine 10 mg PO DAILY 11/23/19 03/07/20 03/07/20 10:00 History Multivit-Min/Iron/Folic Acid/K 1 tab PO DAILY 02/07/20 03/07/20 03/04/20 10:00 History [Adults Multivitamin Tablet] Pravastatin [Pravachol] 80 mg PO QHS #30 tablet 02/09/20 03/07/20 02/18/19 Rx Aspirin EC [Halfprin EC] 81 mg PO DAILY 03/07/20 03/07/20 03/07/20 10:00 History Clopidogrel [Plavix] 75 mg PO DAILY 03/07/20 03/07/20 03/06/20 10:00 History ISOSORBIDE MONOnitrate [Imdur ER] 120 mg PO QDAY 03/07/20 03/07/20 03/07/20 10:00 History Losartan [Cozaar] 50 mg PO QDAY 03/07/20 03/07/20 03/07/20 History 50 mg Metoprolol [Lopressor TAB] 100 mg PO BID 03/07/20 03/07/20 03/07/20 10:00 History Ranolazine [Ranexa] 1,000 mg PO BID 03/07/20 03/07/20 03/07/20 10:00 History Pantoprazole [Protonix] 40 mg PO QDAY #14 tablet 03/09/20 Unknown Rx ED Physical Exam - General Limitations: No Limitations General appearance: alert, in no apparent distress - Head Head exam: Present: atraumatic, normocephalic - Eye Eye exam: Present: PERRL, EOMI - ENT ENT exam: Present: mucous membranes moist, other (airway patent) - Neck Neck exam: Present: other (supple; no JVD) - Respiratory Respiratory exam: Present: other (good air entry, nml I:E, CTAB, no use of PORSCHE) - Cardiovascular Cardiovascular Exam: Present: regular rate. Absent: rubs, gallop - GI/Abdominal GI/Abdominal exam: Present: other (soft; tender to palpation in L flank and LLQ; no rebound tenderness or involuntary guarding) - Extremities Exam Extremities exam: Present: full ROM. Absent: tenderness - Back Exam Back exam: Present: full ROM, CVA tenderness (L) - Neurological Exam Neurological exam: Present: alert, oriented X3, CN II-XII intact. Absent: motor sensory deficit - Skin Skin exam: Present: warm, normal color ED Course Vital Signs 02/05/22 02/05/22 02/05/22 14:06 14:38 14:46 Temperature 98.9 F 98.9 F Pulse Rate 93 H 88 85 Respiratory 20 25 H 18 Rate Blood Pressure 93/61 Blood Pressure 108/63 [Right] O2 Sat by Pulse 97 83 L 99 Oximetry 02/05/22 02/05/22 02/05/22 14:55 15:01 15:15 Temperature Pulse Rate 87 85 Respiratory 21 20 Rate Blood Pressure Blood Pressure [Right] O2 Sat by Pulse 100 98 98 Oximetry 02/05/22 02/05/22 02/05/22 15:19 15:24 15:30 Temperature Pulse Rate 88 80 87 Respiratory 18 18 20 Rate Blood Pressure 94/53 Blood Pressure 93/48 91/48 [Right] O2 Sat by Pulse 99 99 98 Oximetry 02/05/22 02/05/22 02/05/22 15:45 16:00 16:15 Temperature Pulse Rate 85 84 83 Respiratory 21 17 17 Rate Blood Pressure 102/58 111/60 114/67 Blood Pressure [Right] O2 Sat by Pulse 98 97 98 Oximetry 02/05/22 16:30 Temperature Pulse Rate 83 Respiratory 18 Rate Blood Pressure 113/66 Blood Pressure [Right] O2 Sat by Pulse 98 Oximetry ED Medical Decision Making - Lab Data Result diagrams: 02/05/22 14:58 02/05/22 14:58 Laboratory Tests 02/05/22 02/05/22 02/05/22 14:46 14:58 14:58 WBC 14.6 H RBC 2.92 L Hgb 8.8 L Hct 26.5 L MCV 91 MCH 30 MCHC 33 RDW 15.0 Plt Count 192 PT INR APTT Sodium 136 L Potassium 4.8 Chloride 98.3 Carbon Dioxide 17 L Anion Gap 26 BUN 42 H Creatinine 4.7 H Estimated GFR 13 BUN/Creatinine Ratio 9 Glucose 359 H Calcium 8.2 L Total Bilirubin 0.30 Direct Bilirubin < 0.2 Indirect Bilirubin 0.1 AST 15 ALT 9 Alkaline Phosphatase 91 Total Protein 6.6 Albumin 3.8 L Albumin/Globulin Ratio 1.4 Lipase 30 Urine Color Yellow Urine Turbidity Clear Urine pH 5.0 Ur Specific [place] 1.013 Urine Protein 100 mg/dl Urine Glucose (UA) >=500 Urine Ketones Neg Urine Blood Neg Urine Nitrite Neg Urine Bilirubin Neg Urine Urobilinogen < 2.0 Ur Leukocyte Esterase Neg Urine WBC (Auto) 2.0 Urine RBC (Auto) 1.0 U Epithel Cells (Auto) < 1.0 Urine Mucus Few Urine Sperm Few Blood Type Antibody Screen Crossmatch 02/05/22 02/05/22 15:43 15:43 WBC RBC Hgb Hct MCV MCH MCHC RDW Plt Count PT 14.4 INR 1.01 APTT 24.0 L Sodium Potassium Chloride Carbon Dioxide Anion Gap BUN Creatinine Estimated GFR BUN/Creatinine Ratio Glucose Calcium Total Bilirubin Direct Bilirubin Indirect Bilirubin AST ALT Alkaline Phosphatase Total Protein Albumin Albumin/Globulin Ratio Lipase Urine Color Urine Turbidity Urine pH Ur Specific [place] Urine Protein Urine Glucose (UA) Urine Ketones Urine Blood Urine Nitrite Urine Bilirubin Urine Urobilinogen Ur Leukocyte Esterase Urine WBC (Auto) Urine RBC (Auto) U Epithel Cells (Auto) Urine Mucus Urine Sperm Blood Type O POSITIVE Antibody Screen Negative Crossmatch See Detail CT abd/pelvis: L flank pain. TECHNIQUE: Axial CT images were obtained through the abdomen and pelvis without IV contrast. All CT scans at this location are performed using CT dose reduction for ALARA by means of automated exposure control. COMPARISON: Renal ultrasound dated 02/07/2020 FINDINGS: LOWER CHEST: There is some linear p arenchymal opacity in the left lung base likely representing atelectasis or scar. There is trace amount of left pleural fluid. LIVER: No focal hepatic lesions are seen. GALLBLADDER: No significant abnormality. BILE DUCTS: No significant abnormality. PANCREAS: No significant abnormality. SPLEEN: No s ignificant abnormality. ADRENALS: The left adrenal gland is obscured by perinephric hematoma. Right adrenal gland is unremarkable. RIGHT KIDNEY / URETER: The right kidney is small measuring approximately 8 cm in length. No focal lesions are seen. There is no hydronephrosis. LEFT KIDNEY / URETER: There is a large subcapsular hematoma measuring approximately 9.6 x 5.6 x 11.5 cm. There is some additional hematoma in the perinephric fat. There is hematoma in the inferior aspect of the pararenal fascia measuring approximately 8.2 x 6.6 x 14.2 cm. STOMACH / SMALL BOWEL: No significant abnormality. COLON: Diverticulosis without acute inflammation. APPENDIX: Not visualized. PERITONEUM: There is a small amount of free fluid in the colic gutters and adjacent to the liver and spleen. This measures above water density and likely contains some blood related to the renal hemorrhage. No free air. No fluid collection. LYMPH NODES: No significant adenopathy. AORTA / ARTERIES: Mild atherosclerotic calci fication without acute abnormality. IVC / VEINS: No significant abnormality. URINARY BLADDER: Contracted around a Gill catheter. REPRODUCTIVE ORGANS: No significant abnormality. ADDITIONAL FINDINGS: None. SKELETAL SYSTEM: No acute abnormality. IMPRESSION: 1. There is a large subcapsular hematoma in the left kidney. There is perinephric hematoma. There is a relatively large hematoma in the inferior aspect of the left anterior pararenal fascia. There is a small amount of free fluid in the abdomen in the paracolic gutters and adjacent to the liver and spleen which measures above water density indicating presence of some blood within this fluid as well. - Medical Decision Making Dr. Huerta (general surgeon here) consulted. He recommends transferring patient to a hospital where the surgeon can have urology back up. Dr. Siu (Gen surgeon at [place], where patient had procedure done and where patient's primary urologist is) called. He accepted patient in transfer after multiple calls. Patient received NS 2L bolus, then @ 125 ml/hr, 2 units of PRBCs, insulin 4 units SC x 1. Critical care time in (mins) excluding proc time.: 45 Critical care attestation.: If time is entered above; I have spent that time in minutes in the direct care of this critically ill patient, excluding procedure time. ED Disposition Clinical Impression: Intraabdominal hemorrhage, Hyperglycemia Disposition: 02 SHORT TERM HOSPITAL Is pt being admited?: No Does the pt Need Aspirin: No Condition: Stable Time of Disposition: 18:00 (Patient transferred to Dr. Siu. Sign out was given by me to the admitting provider. )
--- NOTE | 2022-02-05 15:29 | Cat Scan Report ---
CT ABDOMEN AND PELVIS WITHOUT CONTRAST INDICATION / CLINICAL INFORMATION: L flank pain. TECHNIQUE: Axial CT images were obtained through the abdomen and pelvis without IV contrast. All CT scans at this location are performed using CT dose reduction for ALARA by means of automated exposure control. COMPARISON: Renal ultrasound dated 02/07/2020 FINDINGS: LOWER CHEST: There is some linear parenchymal opacity in the left lung base likely representing atele ctasis or scar. There is trace amount of left pleural fluid. LIVER: No focal hepatic lesions are seen. GALLBLADDER: No significant abnormality. BILE DUCTS: No significant abnormality. PANCREAS: No significant abnormality. SPLEEN: No significant abnormality. ADRENALS: The left adrenal gland is obscured by perinephric hematoma. Right adrenal gland is unremark able. RIGHT KIDNEY / URETER: The right kidney is small measuring approximately 8 cm in length. No focal les ions are seen. There is no hydronephrosis. LEFT KIDNEY / URETER: There is a large subcapsular hematoma measuring approximately 9.6 x 5.6 x 11.5 cm. There is some additional hematoma in the perinephric fat. There is hematoma in the inferior aspec t of the pararenal fascia measuring approximately 8.2 x 6.6 x 14.2 cm. STOMACH / SMALL BOWEL: No significant abnormality. COLON: Diverticulosis without acute inflammation. APPENDIX: Not visualized. PERITONEUM: There is a small amount of free fluid in the colic gutters and adjacent to the liver and spleen. This measures above water density and likely contains some blood related to the renal hemorrh age. No free air. No fluid collection. LYMPH NODES: No significant adenopathy. AORTA / ARTERIES: Mild atherosclerotic calcification without acute abnormality. IVC / VEINS: No significant abnormality. URINARY BLADDER: Contracted around a Gill catheter. REPRODUCTIVE ORGANS: No significant abnormality. ADDITIONAL FINDINGS: None. SKELETAL SYSTEM: No acute abnormality. IMPRESSION: 1. There is a large subcapsular hematoma in the left kidney. There is perinephric hematoma. There is a relatively large hematoma in the inferior aspect of the left anterior pararenal fascia. There is a small amount of free fluid in the abdomen in the paracolic gutters and adjacent to the liver and sple en which measures above water density indicating presence of some blood within this fluid as well. IMPORTANT FINDING: Time of Communication (C PROGRAMMER/CDT): 1424 Licensed Practitioner Receiving Report: Dr. Eddy Signer Name: Gatito Mcrae MD Signed: 02/05/2022 3:24 PM Workstation Name: [id number]
[2022-02-05] MEDS ORDERED: SODIUM CHLORIDE 0.9% 1000 ML 1,000 ML IV ONE ×3 (15:32→18:45)
[2022-02-05 15:50] LABS: Hematocrit 26.5 % (35.5-45.6); Hemoglobin 8.8 gm/dl (11.8-15.2); Mean Corpuscular HGB Conc 33 % (32-34); Mean Corpuscular Volume 91 fl (84-94); Platelet Count 192 K/mm3 (140-440); Red Blood Count 2.92 M/mm3 (3.65-5.03)
[2022-02-05 16:01] LABS: Bilirubin,Urine NEG (Negative); Blood,Urine NEG (Negative); Color,Urine Yellow (Yellow); Mucus,Urine FEW /HPF; Sperm,Urine FEW /HPF (NP); Urobilinogen,Urine < 2.0 mg/dL (<2.0)
[2022-02-05 16:16] LABS: Alanine Aminotransferase 9 units/L (7-56); Albumin 3.8 g/dL (3.9-5); Blood Urea Nitrogen 42 mg/dL (9-20); Calcium 8.2 mg/dL (8.4-10.2); Hemolysis Index 7
[2022-02-05 16:18] LABS: BUN/Creatinine Ratio 9; Bilirubin,Direct < 0.2 mg/dL (0-0.2)
[2022-02-05 16:55] LABS: INR 1.01 (0.87-1.13)
[2022-02-05] MEDS ORDERED: SODIUM CHLORIDE 0.9% 500 ML 500 ML IV ONE (17:27)
[2022-02-05] MEDS ORDERED: INSULIN REGULAR, HUMAN 100 UNITS/1 ML SUB-Q ONE (18:47)
[2022-02-05] MEDS ORDERED: MORPHINE 4 MG/1 ML INJ IV ONE (19:22)
[2022-02-05] MEDS ORDERED: HYDROmorphone 1 MG/1 ML INJ IV ONE (19:22)
[2022-02-05] MEDS ORDERED: MORPHINE 4 MG/1 ML INJ ONE (22:22)
[2022-02-05 22:42] VITALS: BP 129/74
== END 2022-02-05 22:49 | disposition short-term general hospital (02) ==
LOC: ED 13:49
DX: S36.892A Contusion of other intra-abdominal organs, initial encounter (principal); E11.65 Type 2 diabetes mellitus with hyperglycemia; R58 Hemorrhage, not elsewhere classified; R10.9 Unspecified abdominal pain; I13.0 Hypertensive heart and chronic kidney disease with heart failure and stage 1 through stage 4 chronic kidney disease, or unspecified chronic kidney disease; E11.22 Type 2 diabetes mellitus with diabetic chronic kidney disease; N18.30 Chronic kidney disease, stage 3 unspecified; I50.9 Heart failure, unspecified; M19.90 Unspecified osteoarthritis, unspecified site; Z98.890 Other specified postprocedural states; Z88.1 Allergy status to other antibiotic agents; Z88.5 Allergy status to narcotic agent; Z88.8 Allergy status to other drugs, medicaments and biological substances; X58.XXXA Exposure to other specified factors, initial encounter; Y93.89 Activity, other specified; Y92.89 Other specified places as the place of occurrence of the external cause; Y99.8 Other external cause status
CPT/HCPCS: 36415; 36430; 51702; 74176; 80048; 80076; 81001; 82962; 83690; 85027; 85610; 85730; 86850; 86900; 86901; 86920; 96361; 96374; 96375; 99291; J1170; J2270; J2405; J7030; J7040; P9016

== ENCOUNTER 2022-05-13 07:51 | Day surgery (SDC) | payer BC, OTHER ==
[2022-05-13] MEDS ORDERED: SODIUM CHLORIDE 0.9% 1000 ML 1,000 ML ONE (08:54)
[2022-05-13] MEDS ORDERED: MIDAZOLAM 2 MG/2 ML INJ ONE (09:19)
[2022-05-13] MEDS ORDERED: ONDANSETRON 4 MG/2 ML INJ ONE (09:20)
[2022-05-13] MEDS ORDERED: LIDOCAINE MPF (2%) 20 MG/1 ML VIAL 5 ML ONE (09:20)
[2022-05-13] MEDS ORDERED: fentaNYL 100 MCG/2 ML INJ ONE (09:21)
[2022-05-13] MEDS ORDERED: propofoL 200 MG/20 ML VIAL IV ONE (09:21)
[2022-05-13 09:22] LABS: Hematocrit 32.7 % (35.5-45.6); Hemoglobin 11.4 gm/dl (11.8-15.2); Mean Corpuscular HGB Conc 35 % (32-34); Mean Corpuscular Volume 88 fl (84-94); Platelet Count 176 K/mm3 (140-440); Red Blood Count 3.72 M/mm3 (3.65-5.03); Red Cell Distribution Width 16.7 % (13.2-15.2)
--- NOTE | 2022-05-13 09:22 | Anesthesia Day of Surgery ---
Anesthesia Day of Surgery - Day of Surgery Patient Examined: Yes Patient H&P Reviewed: Yes Patient is NPO: Yes
--- NOTE | 2022-05-13 09:22 | Anesthesia Consultation ---
Anesthesia Consult and Med Hx Date of service: 05/13/22 - Airway Anesthetic Teeth Evaluation: Good ROM Head & Neck: Adequate Mental/Hyoid Distance: Adequate Mallampati Class: Class II Intubation Access Assessment: Good - Pulmonary Exam CTA: Yes - Cardiac Exam Cardiac Exam: No Murmur - Pre-Operative Health Status ASA Pre-Surgery Classification: ASA3 Proposed Anesthetic Plan: General - Pulmonary Hx Smoking: No Hx Sleep Apnea: Yes (DX SLEEP APNEA , NO CPAP USE) - Cardiovascular System Hx Hypertension: Yes (X 20 YRS) Hx Coronary Artery Disease: Yes Hx Heart Attack/AMI: Yes (2004,2007,2012,2016) Hx Angina: No (NO RECENT CHEST PAIN PER PT) Hx Percutaneous Transluminal Coronary Angioplasty (PTCA): Yes Hx Peripheral Vascular Disease: Yes (UNSURE) - Central Nervous System Hx Back Pain: Yes Hx Psychiatric Problems: Yes (PTSD) - Endocrine Hx Renal Disease: Yes (CKD) Hx End Stage Renal Disease: No Hx Non-Insulin Dependent Diabetes: Yes - Hematic Hx Anemia: Yes (HAS HAD IRON INFUSIONS) - Other Systems Hx Cancer: No
[2022-05-13] MEDS ORDERED: ceFAZolin/Water 2 GM/20 ML 2 GM/20 ML SYRINGE IV ONE (09:28)
[2022-05-13] MEDS ORDERED: ceFAZolin/STERILE WATER 2 GM/20 ML SYRINGE IV NR (09:30)
[2022-05-13] MEDS ORDERED: SODIUM CHLORIDE 0.9% 1000 ML 1,000 ML IV SCH (09:30)
[2022-05-13] MEDS ORDERED: WATER FOR IRRIG STERILE 2000 ML IR ONE (10:00)
[2022-05-13] MEDS ORDERED: MIDAZOLAM 2 MG/2 ML INJ IV NR (10:00)
[2022-05-13 10:13] LABS: Albumin 3.8 g/dL (3.9-5); Calcium 8.5 mg/dL (8.4-10.2)
--- NOTE | 2022-05-13 10:21 | Short Stay Summary ---
Short Stay Documentation Date of service: 05/06/22 - History H&P: obtained from office - Allergies and Medications Current Medications: Allergies promethazine [From Phenergan] Allergy (Verified 11/23/19 17:03) Nausea tramadol Allergy (Verified 05/12/22 08:38) Itching atorvastatin Adverse Reaction (Verified 05/12/22 08:38) Itching, SWELLING ibuprofen [From Motrin] Adverse Reaction (Verified 05/12/22 08:39) DECREASED RENAL FUNCTION Home Medications Medication Instructions Recorded Confirmed Last Taken Type Allopurinol 150 mg PO DAILY 01/22/17 05/12/22 03/07/20 History Colchicine 0.6 mg PO BID #12 capsule 05/10/19 05/12/22 09/20/19 Rx Citalopram [Celexa] 40 mg PO DAILY 11/23/19 05/12/22 03/04/20 10:00 History Insulin NPH/Regular 5 units SUB-Q TID 11/23/19 05/12/22 03/07/20 10:00 History Levemir VIAL 15 units SUB-Q HS 11/23/19 05/12/22 03/06/20 22:00 History Methotrexate 20 mg PO 1XW 11/23/19 05/12/22 02/28/20 History amLODIPine 10 mg PO DAILY 11/23/19 05/12/22 03/07/20 10:00 History Multivit-Min/Iron/Folic Acid/K 1 tab PO DAILY 02/07/20 05/12/22 03/04/20 10:00 History [Adults Multivitamin Tablet] Pravastatin [Pravachol] 80 mg PO QHS #30 tablet 02/09/20 05/12/22 02/18/19 Rx Aspirin EC [Halfprin EC] 81 mg PO DAILY 03/07/20 05/12/22 03/07/20 10:00 History Clopidogrel [Plavix] 75 mg PO DAILY 03/07/20 05/12/22 03/06/20 10:00 History ISOSORBIDE MONOnitrate [Imdur ER] 120 mg PO QDAY 03/07/20 05/12/22 03/07/20 10:00 History Losartan [Cozaar] 50 mg PO QDAY 03/07/20 05/12/22 03/07/20 History 50 mg Metoprolol [Lopressor TAB] 100 mg PO BID 03/07/20 05/12/22 03/07/20 10:00 Hi story Ranolazine [Ranexa] 1,000 mg PO BID 03/07/20 05/12/22 03/07/20 10:00 History Pantoprazole [Protonix] 40 mg PO QDAY #14 tablet 03/09/20 05/12/22 Unknown Rx Leflunomide [Arava] 20 mg PO QDAY 05/12/22 05/12/22 Unknown History Semaglutide [Ozempic] 0.5 mg SQ QWEEK 05/12/22 05/12/22 Unknown History Active Medications Sodium Chloride (Nacl 0.9% 1000 Ml) 1,000 mls @ 100 mls/hr IV DIRECT PARRIS Midazolam HCl (Midazolam 2 Mg/2 Ml Inj) 2 mg IV PREOP NR Stop: 05/13/22 23:59 - Brief post op/procedure progress note Date of procedure: 05/13/22 Pre-op diagnosis: BPH, LEFT TESTES MASS Post-op diagnosis: same Procedure: CYSTO, RPG, URETHRAL DILATION Anesthesia: GETA Surgeon: JAREN ADAME Estimated blood loss: minimal Condition: stable - Hospital course Hospital course: BACTRIM, FLOMAX, NORCO ERX FROM OFFICE - Disposition Condition at discharge: Stable Disposition: 01 HOME / SELF CARE / HOMELESS Short Stay Discharge Plan Follow up with: PRIMARY CARE, [Primary Care Provider] - 7 Days
--- NOTE | 2022-05-13 10:50 | Operative Report ---
DATE OF SURGERY: 05/13/2022 PREOPERATIVE DIAGNOSES: Benign prostatic hypertrophy, hematuria and left scrotal mass. POSTOPERATIVE DIAGNOSES: Benign prostatic hypertrophy, hematuria, left scrotal mass and urethral stricture. PROCEDURES PERFORMED: Cystoscopy, bilateral retrograde pyelogram, urethral dilatation with 24-Filipino. SURGEON: Angel Lepe MD. ANESTHESIA: General. ESTIMATED BLOOD LOSS: Minimal. FLUIDS: Crystalloid. COMPLICATIONS: No complications. INDICATIONS: This patient is a 62-year-old gentleman. His primary care is Dr. Bhupinder Hernandez. He was recently in the hospital for bleeding. He has a history of cardiac disease, on blood thinners, developed urinary retention as well as he has noted a left scrotal mass. We discussed options and he agreed to proceed with surgical intervention. DESCRIPTION OF PROCEDURE: The patient was taken to the operative suite, placed in a supine position. After adequate general anesthesia, placed in a dorsal lithotomy position and prepped and draped in a sterile fashion. Pancystourethroscopy was performed with a 22-Filipino Storz cystoscope. Urethra had a bulbar stricture, was able to dilate from 18-Filipino to a 24-Filipino without difficulty. Prostate did display some [id number] trilobar obstruction. Bladder: No tumors or stones were noted. Both ureteral orifices in normal position. Bilateral retrograde pyelograms were obtained with an 8-Filipino [place] catheter and 8 mL of contrast. No filling defects or obstruction. The patient was noted to have a mass of the cephalad portion of the left epididymis, approximately 1 cm in diameter. Rectal exam was benign. He was extubated and taken to recovery room. We will get an ultrasound today. We will start Flomax, Bactrim and [place]. TID: [id number] RECEIPT: [id number] [facility]
--- NOTE | 2022-05-13 11:30 | Fluoroscopy Report ---
FLUOROSCOPY RETROGRADE UROGRAPHY INDICATION: URETRAL STRICTURE, BPH. COMPARISON: None. IMPRESSION: 0.1 minutes of fluoroscopy time was provided by radiology during retrograde urography. 4 fluoroscopic images are presented. 50 cc of Omnipaque 300 was utilized. No filling defect or abnorm al dilatation is identified in either collecting system. Please correlate with the procedural report from neurology. Signer Name: Fabián Vidal Jr, MD Signed: 05/13/2022 11:25 AM Workstation Name: [id number]
--- NOTE | 2022-05-13 12:04 | Ultrasound Report ---
Ultrasound testicular Doppler complete HISTORY: LEFT SCROTAL MASS, NEED DOPPLER. TECHNIQUE: Grayscale and color/spectral Doppler imaging performed. COMPARISON: None FINDINGS: The right testicle measures 2.6 x 2.4 x 3.8 cm. The left testicle measures 2.8 x 2.1 x 3.3 cm. There is no evidence for testicular mass, cyst, calcifications or torsion. Spectral Doppler wavef orms demonstrate arterial flow bilaterally. The right epididymis is unremarkable. There are multiple small cysts in the left epididymis ranging from 7-10 mm in diameter. No evidence for epididymitis. No hydrocele or varicocele. IMPRESSION: Multiple left epididymal cysts as described. Otherwise unremarkable exam. Signer Name: Fabián Vidal Jr, MD Signed: 05/13/2022 11:59 AM Workstation Name: [id number]
[2022-05-13 12:17] VITALS: BP 132/74
--- NOTE | 2022-05-13 14:22 | Post Anesthesia Evaluation ---
- Post Anesthesia Evaluation Patient Participated: Yes Airway Patent: Yes Stable Respiratory Function: Yes Nausea/Vomiting: No Temp > 96.8F: Yes Pain Manageable: Yes Adequeate Hydration: Yes Anesthesia Complications: No
== END 2022-05-13 07:52 | disposition home or self-care (01) ==
LOC: OR 07:51
PROVIDERS: ATTEND Urology
DX: N35.812 Other bulbous urethral stricture, male (principal); N40.0 Benign prostatic hyperplasia without lower urinary tract symptoms; N41.8 Other inflammatory diseases of prostate; I25.10 Atherosclerotic heart disease of native coronary artery without angina pectoris; M10.9 Gout, unspecified; G47.30 Sleep apnea, unspecified; K21.9 Gastro-esophageal reflux disease without esophagitis; I13.0 Hypertensive heart and chronic kidney disease with heart failure and stage 1 through stage 4 chronic kidney disease, or unspecified chronic kidney disease; N18.9 Chronic kidney disease, unspecified; I50.32 Chronic diastolic (congestive) heart failure; E11.22 Type 2 diabetes mellitus with diabetic chronic kidney disease; M06.9 Rheumatoid arthritis, unspecified; F32.9 Major depressive disorder, single episode, unspecified; F41.9 Anxiety disorder, unspecified; D64.9 Anemia, unspecified; Z88.8 Allergy status to other drugs, medicaments and biological substances; Z79.899 Other long term (current) drug therapy; Z95.1 Presence of aortocoronary bypass graft; Z98.890 Other specified postprocedural states; Z82.49 Family history of ischemic heart disease and other diseases of the circulatory system
CPT/HCPCS: 36415; 52281; 74420; 80053; 82962; 85027; 93975; C1758; J0690; J2250; J2405; J2704; J3010; J7030; Q9967